=== PATIENT | male | born 1955 | race Caucasian/White ===

== ENCOUNTER → 2018-02-23 09:05 | Outpatient (CLI) | payer BC, SELFPAY ==
[2018-02-23 12:46] LABS: Absolute Lymphocyte Count 2.38 X10^3/ul (0.83-4.51); Basophil# 0.02 X10^3/uL; Basophil% 0.3 % (0-1); Eosinophil# 0.21 X10^3/uL; Eosinophils% 3.3 % (0-5); Hematocrit 46.8 % (40-54); Hemoglobin 15.8 g/dl (13.0-16.5); Lymphocyte # 2.38 X10^3/ul (4.0); Lymphocyte % 37.6 % (19-41); Mean Corp Hgb Conc 33.8 g/gl (32-36); Mean Corpuscular Hgb 31.7 pg (27.0-32.0); Mean Corpuscular Volume 93.8 fL (80-94); Mean Platelet Vol. 10.9 fl (6.2-12.0); Monocyte# 0.76 X10^3/uL; Neutrophil # 2.95 X10^3/uL (2.7-7.7); Neutrophil % 46.6 % (47-70); Platelet Count 185 K/mm3 (150-450); RBC Distribution Width CV 12.9 % (11.6-14.6); RBC Distribution Width SD 43.1 fl (35.1-43.9); Red Blood Count 4.99 M/mm3 (4.6-6.2); White Blood Count 6.3 K/mm3 (4.4-11.0)
[2018-02-23 12:51] LABS: POSITIVE COUNT NO; POSITIVE DIFFERENTIAL NO; POSITIVE MORPHOLOGY NO
[2018-02-23 13:17] LABS: ALB/GLOB Ratio 0.9 RATIO (0.9-2.4); AST(SGOT) 28 U/L (15-37); Alanine Aminotransfer ALT/SGPT 39 U/L (16-61); Albumin, Serum 3.5 g/dL (3.2-5.0); Alkaline Phosphatase 62 U/L (45-117); Anion Gap 7 (5-15); BUN 19 mg/dL (7-18); BUN/Creat Ratio 16.2 RATIO (10-20); Calcium,Total 8.7 mg/dL (8.5-10.1); Chloride 108 mmol/L (98-107); Creatinine, Serum 1.17 mg/dL (0.70-1.30); EST Glomerular Filtration Rate 67 mL/min (>60); Est Glom Filt Rate - Afr Amer 82 mL/min (>60); Globulin 3.9 g/dL (2.2-4.2); Glucose 77 mg/dL (74-106); PSA,Total - Annual Screen 4.26 ng/mL (0.00-4.00); Potassium 4.6 mmol/L (3.5-5.1); Protein, Total 7.4 g/dL (6.4-8.2); Sodium Level 141 mmol/L (136-145); Thyroid Stim Hormone (TSH) 1.05 uIU/mL (0.358-3.74)
[2018-02-24 15:13] LABS: Hep C Antibodies <0.1 s/co ratio (0.0-0.9)
== END ==
PROVIDERS: Family Provider Family Medicine Geriatric Medicine; PCP Family Medicine Geriatric Medicine; Visit Provider Family Medicine Geriatric Medicine
DX: F52.8 Other sexual dysfunction not due to a substance or known physiological condition (principal); R53.83 Other fatigue; Z12.5 Encounter for screening for malignant neoplasm of prostate; Z13.89 Encounter for screening for other disorder
CPT/HCPCS: 36415; 80053; 84153; 84403; 84443; 85025; 86803; G0103

== ENCOUNTER → 2018-03-23 17:08 | Outpatient (CLI) | payer BC, SELFPAY | PROVIDERS: Family Provider Family Medicine Geriatric Medicine; PCP Family Medicine Geriatric Medicine; Visit Provider Family Medicine Geriatric Medicine | DX: M54.5 Low back pain (principal) | CPT/HCPCS: 72114 ==

== ENCOUNTER → 2018-09-04 15:51 | Outpatient (CLI) | payer BC, SELFPAY ==
[2018-06-02 14:42] VITALS: BMI 29.7
[2018-09-04 16:57] LABS: PSA,Total- Diagnostic 5.91 ng/mL (0.0-4.0)
== END ==
PROVIDERS: Family Provider Family Medicine Geriatric Medicine; PCP Family Medicine Geriatric Medicine; Referring Provider Urology; Visit Provider Urology
DX: R97.20 Elevated prostate specific antigen [PSA] (principal)
CPT/HCPCS: 36415; 84153

== ENCOUNTER → 2018-10-19 08:15 | Outpatient (CLI) | payer BC, SELFPAY ==
--- NOTE | 2018-10-19 | IMM_PTH ---
PATIENT: JOSE CASTRO LOC: [facility] U#:[id number] AGE/SX: 69/M ROOM: RE10/19/[address]: Dr. Dmitry Meza MD : 1955 BED: DIS: SPEC #: [id number] RECD: 10/22/18 09:13 STATUS: KLAUDIA GERA #: [id number] RUBY: 10/19/18 00:[address]: Dmitry Meza DEPT: IMMUNOHISTOCHEMISTRY RECD BY: Kathleen Warner ENTERED: 10/22/18 09:14 SP TYPE: IMMUNO OTHR DR: Dr. Dudley Stevens MD Tissues: A - PROSTATE RIGHT E - PROSTATE LEFT Procedures: 34BE12 (add) P40 (add) 34BE12 (initial) PHYSICIAN & INSTITUTION [place] [id number] SPECIMEN INFORMATION: Tissue Source: A - Right prostate, apex, core biopsy, E - Left prostate, mid, core biopsy Clinical Info: Elevated PSA Specimen Number: [id number] A & E CPT code: 57924, 58594 x3 METHODOLOGY: Deparaffinized sections of prefer/formalin-fixed tissue or PAP/DQ stained slides are incubated with monoclonal/polyclonal antibodies/oligonucleotide probes. Localization is made via biotin free immunoperoxidase method. Appropriate controls are performed and reacted as expected. Results on target cell population are indicated in the following table: RESULTS: ANTIBODY / CLONE RESULT Block A P40 (BC28) negative 34BE12 (34BE12) negative Block E P40 (BC28) negative 34BE12 (34BE12) negative These tests were developed and their performance characteristics determined by [facility]. They may not have been cleared or approved by the U.S. Food and Drug Administration. The FDA has determined that such clearance or approval is not necessary. INTERPRETATION: A. Right prostate, apex, core biopsy: Adenocarcinoma. E. Left prostate, mid, core biopsy: Adenocarcinoma. SJ:nelsy 10/22/18
--- NOTE | 2018-10-19 11:30 | PROSBIL_PTH ---
PATIENT: JOSE CASTRO LOC: [facility] U#:[id number] AGE/SX: 69/M ROOM: RE10/19/[address]: Dr. Dmitry Meza MD : 1955 BED: DIS: SPEC #: [id number] RECD: 10/19/18 17:36 STATUS: KLAUDIA GERA #: [id number] RUBY: 10/19/18 11:[address]: Dmitry Meza DEPT: SURGICAL PATHOLOGY RECD BY: Andrea Tarango ENTERED: 10/20/18 09:02 SP TYPE: PROST BX LETY DR: Dr. Dudley Stevens MD Tissues: A - PROSTATE RIGHT B - PROSTATE RIGHT C - PROSTATE RIGHT D - PROSTATE LEFT E - PROSTATE LEFT F - PROSTATE LEFT Procedures: PROSTATE BX HEADER OPERATION: Prostate biopsy PRE-OP DIAGNOSIS: Elevated PSA TISSUE SUBMITTED: A - Right apex, B - Right mid, C - Right base, D - Left apex, E - Left mid, F - Left base MICROSCOPIC DIAGNOSIS A. Right prostate, apex, core biopsy: Prostatic adenocarcinoma: Tara grade: 3+3=6 Number of cores involved: 2 out of 2 Proportion of tissue involved: ~20% Perineural invasion: Not identified. Greatest tumor length: 0.3 cm Focal high-grade prostatic intraepithelial neoplasia (HGPIN). See comment. B. Right prostate, mid, core biopsy: Prostatic tissue, negative for malignancy. C. Right prostate, base, core biopsy: Focal high-grade prostatic intraepithelial neoplasia (HGPIN). D. Left prostate, apex, core biopsy: Focal high-grade prostatic intraepithelial neoplasia (HGPIN). E. Left prostate, mid, core biopsy: Prostatic adenocarcinoma: Robertson grade: 3+3=6 Number of cores involved: 2 out of 2 Proportion of tissue involved: <5% Perineural invasion: Not identified. Greatest tumor length: 0.1 cm See comment. F. Left prostate, base, core biopsy: Prostatic tissue, negative for malignancy. SJ:nelsy 10/21/18 COMMENT A & E. Immunohistochemistry ([id number]) supports the above diagnosis. Case has been reviewed in consultation with Dr. Baker who concurs with the above diagnosis. IDC:AM MICROSCOPIC DESCRIPTION Slides are reviewed. GROSS DESCRIPTION A - Received is one container designated prostate, right apex. The specimen consists of two elongated fragments of light flores-white soft tissue measuring 0.9 to 1 cm in length and 0.1 cm in diameter. The specimen is totally submitted in one cassette. B - Received is one container designated prostate, right mid. The specimen consists of two elongated fragments of light flores-white soft tissue each measuring 1.2 cm in length and 0.1 cm in diameter. The specimen is totally submitted in one cassette. C - Received is one container designated prostate, right base. The specimen consists of two elongated fragments of light flores-white soft tissue measuring 0.5 and 1 cm in length and 0.1 cm in diameter. The specimen is totally submitted in one cassette. D - Received is one container designated prostate, left apex. The specimen consists of two elongated fragments of light flores-white soft tissue measuring 0.5 and 1 cm in length and 0.1 cm in diameter. The specimen is totally submitted in one cassette. E - Received is one container designated prostate, left mid. The specimen consists of two elongated fragments of light flores-white soft tissue each measuring 1.2 cm in length and 0.1 cm in diameter. The specimen is totally submitted in one cassette. F - Received is one container designated prostate, left base. The specimen consists of two elongated fragments of light flores-white soft tissue each measuring 1.5 cm in length and 0.1 cm in diameter. The specimen is totally submitted in one cassette. / SJ:rg 10/20/18 TC:0 [facility]: [id number] x6 ADDENDUM ADDENDUM ADDENDUM ADDENDUM ADDENDUM ADDENDUM ADDENDUM ADDENDUM 11/13/2018 09:13 ADDENDUM 11/13/2018 09:13 ADDENDUM 11/13/2018 09:13 ADDENDUM 11/13/2018 09:13 ADDENDUM 11/13/2018 09:13 An order for Oncotype testing was received from Dr. Meza. This necessitated case review, block and slide selection by pathologist at [facility]. Genomic Prostate Score = 30 Results of the complete Oncotype testing (ViS report) are viewable in EMR under: Reports - Pathology - Lab Pathology Report, Scanned.
== END ==
PROVIDERS: Family Provider Family Medicine Geriatric Medicine; PCP Family Medicine Geriatric Medicine; Referring Provider Urology; Visit Provider Urology
DX: R97.20 Elevated prostate specific antigen [PSA] (principal)
CPT/HCPCS: 88305; 88341; 88342; G0416

== ENCOUNTER → 2018-11-30 | Outpatient (CLI) | payer BC, SELFPAY ==
[2018-06-02 14:42] VITALS: BMI 29.7
--- NOTE | 2018-11-30 17:09 | RAD_ITS ---
STUDY: X-RAY - LEFT KNEE REASON FOR EXAM: Male, 62 years old. Pain TECHNIQUE: 4 view(s) of the knee. COMPARISON: None. FINDINGS: Normal visualized distal femur. Normal visualized proximal tibia and fibula. Mild spurring of the tibial tuberosity. Normal proximal tibiofibular articulation. Normal medial femorotibial compartment. Normal lateral femorotibial compartment. Mild spurring at the patellofemoral articulation. There is a suprapatellar effusion suspected. The soft tissue structures are unremarkable. RAD/Knee 4 or More Views IMPRESSION: Mild degenerative changes with effusion of the knee. Electronically Signed: Tk Govea DO at 19:14 EDT Tel [phone], Service support ,
== END | disposition home or self-care (01) ==
LOC: RAD 17:05
PROVIDERS: Family Provider Family Medicine Geriatric Medicine; PCP Family Medicine Geriatric Medicine; Referring Provider Family Medicine Geriatric Medicine; Visit Provider Family Medicine Geriatric Medicine
DX: M25.562 Pain in left knee (principal)
CPT/HCPCS: 73564

== ENCOUNTER → 2019-03-01 | Outpatient (CLI) | payer BC, SELFPAY ==
[2019-03-01 11:52] LABS: Absolute Lymphocyte Count 2.06 X10^3/uL (0.83-4.51); Absolute Neutrophil Count 2.8 X10^3/uL (2.0-7.7); Basophil# 0.02 X10^3/uL; Basophil% 0.4 % (0-1); Eosinophil# 0.21 X10^3/uL; Eosinophils% 3.7 % (0-5); Hemoglobin 15.9 g/dL (13.0-16.5); Lymphocyte # 2.06 X10^3/ul (4.0); Lymphocyte % 36.6 % (19-41); Mean Corp Hgb Conc 33.8 g/dL (32-36); Mean Corpuscular Hgb 31.7 pg (27.0-32.0); Mean Corpuscular Volume 93.6 fL (80-94); Mean Platelet Vol. 10.3 fl (6.2-12.0); Monocyte# 0.56 X10^3/uL; Monocyte% 9.9 % (0-10); NRBC Flagged by Analyzer 0 % (0-5); Neutrophil # 2.76 X10^3/uL (2.7-7.7); Platelet Count 190 K/mm3 (150-450); RBC Distribution Width CV 12.3 % (11.6-14.6); RBC Distribution Width SD 42.1 fl (35.1-43.9); Red Blood Count 5.02 M/mm3 (4.6-6.2); White Blood Count 5.6 K/mm3 (4.4-11.0)
[2019-03-01 12:27] LABS: ALB/GLOB Ratio 1.1 RATIO (0.9-2.4); AST(SGOT) 22 U/L (15-37); Alanine Aminotransfer ALT/SGPT 34 U/L (16-61); Albumin, Serum 3.5 g/dL (3.2-5.0); Alkaline Phosphatase 60 U/L (45-117); Anion Gap 4 (5-15); BUN 19 mg/dL (7-18); BUN/Creat Ratio 16.5 RATIO (10-20); Calcium,Total 8.7 mg/dL (8.5-10.1); Chloride 108 mmol/L (98-107); Creatinine, Serum 1.15 mg/dL (0.70-1.30); EST Glomerular Filtration Rate 68 mL/min (>60); Est Glom Filt Rate - Afr Amer 83 mL/min (>60); Globulin 3.3 g/dL (2.2-4.2); Glucose 92 mg/dL (74-106); Potassium 4.2 mmol/L (3.5-5.1); Protein, Total 6.8 g/dL (6.4-8.2); Sodium Level 140 mmol/L (136-145)
== END | disposition home or self-care (01) ==
LOC: POLAB3 08:43
PROVIDERS: Family Provider Family Medicine Geriatric Medicine; PCP Family Medicine Geriatric Medicine; Visit Provider Family Medicine Geriatric Medicine
DX: F52.8 Other sexual dysfunction not due to a substance or known physiological condition (principal); I10 Essential (primary) hypertension; Z12.5 Encounter for screening for malignant neoplasm of prostate
CPT/HCPCS: 36415; 80053; 84403; 84443; 85025

== ENCOUNTER → 2019-05-20 07:58 | Outpatient (CLI) | payer BC, SELFPAY ==
[2019-05-17 15:55] VITALS: BMI 30.4
[2019-05-20 09:28] LABS: AST(SGOT) 24 U/L (15-37); Alanine Aminotransfer ALT/SGPT 40 U/L (16-61); Albumin, Serum 3.7 g/dL (3.2-5.0); Alkaline Phosphatase 64 U/L (45-117); Bilirubin, Direct 0.18 mg/dL (0.00-0.30); Cholesterol 170 mg/dL (200); Globulin 3.4 g/dL (2.2-4.2); High Density Lipoprotein 53 mg/dL; PSA,Total- Diagnostic 3.83 ng/mL (0.0-4.0); Protein, Total 7.1 g/dL (6.4-8.2); Triglycerides 79 mg/dL; Very Low Density Lipoprotein 16 mg/dL (5-40)
== END ==
PROVIDERS: Internal Medicine Cardiovascular Disease; Family Provider Family Medicine Geriatric Medicine; PCP Family Medicine Geriatric Medicine; Referring Provider Urology; Visit Provider Urology
DX: E78.00 Pure hypercholesterolemia, unspecified (principal); C61 Malignant neoplasm of prostate
CPT/HCPCS: 36415; 80061; 80076; 84153

== ENCOUNTER → 2019-06-07 07:47 | Outpatient (CLI) | payer BC, SELFPAY ==
[2019-05-17 15:55] VITALS: BMI 30.4
--- NOTE | 2019-06-07 07:48 | ECHOD_ITS ---
Reason For Study: RV FAILURE Procedure This was a 2D Doppler, Color Flow transthoracic echocardiogram. Exam performed in department. Left Ventricle Normal size and thickness. The estimated ejection fraction is 65 %. Stage 1 diastolic dysfunction. No regional wall motion abnormalities noted. Right Ventricle Moderately dilated right ventricle. Normal systolic function. Atria Normal left atrium. Normal right atrium. Normal atrial septum. Mitral Valve The mitral valve is structurally normal. No prolapse or stenosis seen. Tricuspid Valve Normal tricuspid valve. Trivial tricuspid valve insufficiency. Right ventricular systolic pressure estimated to be 31 mmHg. Aortic Valve Trisinus/trileaflet aortic valve. Mild diffuse aortic valve thickening. Mild (1+) aortic valve insufficiency. Pulmonic Valve Normal pulmonic valve. Great Vessels Normal aortic root. Normal arch. Normal inferior vena cava. Inferior vena cava collapse with sniff. Pericardium/Pleural No pericardial effusion. MMode/2D Measurements & Calculations LVIDd: 5.1 cm IVSd: 0.98 cm Ao root diam: 4.1 cm LVIDs: 3.0 cm LVPWd: 0.99 cm RVDd: 4.6 cm FS: 40.8 % LAV(MOD-bp): 68.5 ml LA A4 area: 23.0 cm2 LA dimension(2D): 4.4 cm LAV(MOD-bp) Indexed: 29.1 ml/m2 LAV(MOD-sp2): 56.8 ml LAV(MOD-sp4): 71.7 ml RA A4 area: 16.7 cm2 Time Measurements MV dec time: 0.22 sec Doppler Measurements & Calculations MV E max josafat: 66.7 cm/sec Lat Peak E' Josafat: 6.3 cm/sec Med Peak E' Josafat: 5.3 cm/sec MV A max josafat: 66.1 cm/sec E/E' lat: 10.6 E/E' med: 12.6 MV E/A: 1.0 Ao V2 max: 121.0 cm/sec AI max josafat: 417.6 cm/sec LV V1 max: 117.6 cm/sec Ao max P.9 mmHg AI max P.8 mmHg LV V1 max P.5 mmHg Ao V2 mean: 97.2 cm/sec AI dec slope: 218.9 cm/sec2 LV V1 mean P.2 mmHg Ao mean P.0 mmHg AI P1/2t: 558.7 msec LV V1 mean: 84.1 cm/sec Ao V2 VTI: 28.6 cm LV V1 VTI: 27.4 cm PA V2 max: 86.5 cm/sec PI end-d josafat: 100.8 cm/sec TR max josafat: 250.1 cm/sec TR max P.0 mmHg Interpretation Summary The estimated ejection fraction is 65 %. Stage 1 diastolic dysfunction. Moderately dilated right ventricle. Trivial tricuspid valve insufficiency. Right ventricular systolic pressure estimated to be 31 mmHg. Mild (1+) aortic valve insufficiency. Compared to echo report dated 10/11/2016, LV function has remained the same, but RVSP has increased from 25 to 31 mm Hg, and AI has gone from trivial to mild. Ordering Physician: Luciano Greer Referring Physician: YANDEL PORTER CHI Performed By: Eros ALICEA RVT, Carrie and Student
== END ==
PROVIDERS: Family Provider Family Medicine Geriatric Medicine; PCP Family Medicine Geriatric Medicine; Referring Provider Internal Medicine Cardiovascular Disease; Visit Provider Internal Medicine Cardiovascular Disease
DX: I50.810 Right heart failure, unspecified (principal); G47.33 Obstructive sleep apnea (adult) (pediatric); I47.2 Ventricular tachycardia; R07.89 Other chest pain; R60.0 Localized edema; Z99.89 Dependence on other enabling machines and devices
CPT/HCPCS: 93306

== ENCOUNTER → 2019-12-07 15:55 | Outpatient (CLI) | payer BC, SELFPAY ==
[2019-05-17 15:55] VITALS: BMI 30.4
[2019-11-30 08:58] VITALS: BMI 30.4
[2019-12-07 16:59] LABS: PSA,Total- Diagnostic 4.51 ng/mL (0.0-4.0)
== END ==
PROVIDERS: PCP Family Medicine Geriatric Medicine; Referring Provider Urology; Visit Provider Urology
DX: C61 Malignant neoplasm of prostate (principal); R97.20 Elevated prostate specific antigen [PSA]
CPT/HCPCS: 36415; 84153

== ENCOUNTER → 2020-01-17 | Outpatient (CLI) | payer BC, SELFPAY ==
[2019-11-30 08:58] VITALS: BMI 30.4
--- NOTE | 2020-01-17 | IMM_PTH ---
PATIENT: JOSE CASTRO LOC: [facility] U#:[id number] AGE/SX: 64/M ROOM: RE01/17/[address]: Dr. Dmitry Meza MD : 1955 BED: DIS: 01/17/2020 SPEC #: [id number] RECD: 01/19/20 11:34 STATUS: KLAUDIA REAnnamarie #: [id number] RUBY: 01/17/20 00:[address]: Dmitry Meza DEPT: IMMUNOHISTOCHEMISTRY RECD BY: Kathleen Warner ENTERED: 01/19/20 11:35 SP TYPE: IMMUNO OTHR DR: Dr. Dudley Stevens MD Tissues: A - PROSTATE RIGHT D - PROSTATE LEFT Procedures: 34BE12 (add) P40 (add) 34BE12 (initial) PHYSICIAN & INSTITUTION [place] [id number] SPECIMEN INFORMATION: Tissue Source: A - Right prostate, apex, core biopsy, B - Left prostate, apex, core biopsy Clinical Info: Elevated PSA Specimen Number: [id number] A & D CPT code: 44424, 98467 x3 METHODOLOGY: Deparaffinized sections of prefer/formalin-fixed tissue or PAP/DQ stained slides are incubated with monoclonal/polyclonal antibodies/oligonucleotide probes. Localization is made via biotin free immunoperoxidase method. Appropriate controls are performed and reacted as expected. Results on target cell population are indicated in the following table: RESULTS: ANTIBODY / CLONE RESULT Block A P40 (BC28) negative 34BE12 (34BE12) negative Block D P40 (BC28) negative 34BE12 (34BE12) negative These tests were developed and their performance characteristics determined by [facility]. They may not have been cleared or approved by the U.S. Food and Drug Administration. The FDA has determined that such clearance or approval is not necessary. The above immunohistochemical/dualISH markers are ordered and reviewed by the Pathologist. INTERPRETATION: A. Right prostate, apex, core biopsy: Adenocarcinoma. D. Left prostate, apex, core biopsy: A minute focus of adenocarcinoma. SJ:nelsy 01/20/20
--- NOTE | 2020-01-17 08:00 | PROSBIL_PTH ---
PATIENT: JOSE CASTRO LOC: [facility] U#:[id number] AGE/SX: 64/M ROOM: RE01/17/[address]: Dr. Dmitry Meza MD : 1955 BED: DIS: 01/17/2020 SPEC #: [id number] RECD: 01/17/20 15:57 STATUS: KLAUDIA REAnnamarie #: [id number] RUBY: 01/17/20 08:[address]: Dmitry Meza DEPT: SURGICAL PATHOLOGY RECD BY: Shaquille Moreno ENTERED: 01/18/20 09:02 SP TYPE: PROST BX LETY DR: Dr. Dudley Stevens MD Tissues: A - PROSTATE RIGHT B - PROSTATE RIGHT C - PROSTATE RIGHT D - PROSTATE LEFT E - PROSTATE LEFT F - PROSTATE LEFT Procedures: PROSTATE BX HEADER OPERATION: Prostate biopsy PRE-OP DIAGNOSIS: Elevated PSA TISSUE SUBMITTED: A - Right apex, B - Right mid, C - Right base, D - Left apex, E - Left mid, F - Left base MICROSCOPIC DIAGNOSIS A. Right prostate, apex, core biopsy: Prostatic adenocarcinoma. Beaumont grade: 3+3=6 Number of cores involved: 2/2 Proportion of tissue involved: ~10% Perineural invasion: Not identified. Greatest tumor length: 0.2 cm See comment. B. Right prostate, mid, core biopsy: Prostatic tissue, negative for malignancy. C. Right prostate, base, core biopsy: Prostatic tissue, negative for malignancy. D. Left prostate, apex, core biopsy: A minute focus of prostatic adenocarcinoma. Beaumont grade: 3+3=6 Number of cores involved: 1/2 Proportion of tissue involved: <5% Perineural invasion: Not identified. Greatest tumor length: <0.1 cm See comment. E. Left prostate, mid, core biopsy: Focal high-grade prostatic intraepithelial neoplasia (HGPIN). F. Left prostate, base, core biopsy: Prostatic tissue, negative for malignancy. Focal mild chronic inflammation. SJ:nelsy 01/19/20 COMMENT A & D. Immunohistochemistry ([id number]) supports the above diagnosis. Please make reference to previous specimen ([id number]) right prostate, apex and left prostate, mid, core biopsies with diagnosis of prostatic adenocarcinoma and right prostate, base and left prostate, apex with diagnosis of focal high-grade prostatic intraepithelial neoplasia. Case has been reviewed in consultation with Dr. Baker who concurs with the above diagnosis. IDC:AM MICROSCOPIC DESCRIPTION Slides are reviewed. GROSS DESCRIPTION A - Received is one container designated prostate, right apex. The specimen consists of two elongated fragments of light flores-white soft tissue each measuring 1.5 cm in length and 0.1 cm in diameter. The specimen is totally submitted in one cassette. B - Received is one container designated prostate, right mid. The specimen consists of two elongated fragments of light flores-white soft tissue each measuring 1.5 cm in length and 0.1 cm in diameter. The specimen is totally submitted in one cassette. C - Received is one container designated prostate, right base. The specimen consists of two elongated fragments of light flores-white soft tissue measuring 0.6 and 2 cm in length and 0.1 cm in diameter. The specimen is totally submitted in one cassette. D - Received is one container designated prostate, left apex. The specimen consists of two elongated fragments of light flores-white soft tissue each measuring 1.5 cm in length and 0.1 cm in diameter. The specimen is totally submitted in one cassette. E - Received is one container designated prostate, left mid. The specimen consists of two elongated fragments of light flores-white soft tissue each measuring 1.2 cm in length and 0.1 cm in diameter. The specimen is totally submitted in one cassette. F - Received is one container designated prostate, left base. The specimen consists of two elongated fragments of light flores-white soft tissue each measuring 1.5 cm in length and 0.1 cm in diameter. The specimen is totally submitted in one cassette. / SJ:rg 01/18/20 TC:0 CPT: 10122 x6
== END | disposition home or self-care (01) ==
LOC: LABSPEC 16:06
PROVIDERS: PCP Family Medicine Geriatric Medicine; Referring Provider Urology; Visit Provider Urology
DX: C61 Malignant neoplasm of prostate (principal); R97.20 Elevated prostate specific antigen [PSA]
CPT/HCPCS: 88305; 88341; 88342; G0416

== ENCOUNTER → 2020-03-06 11:49 | Outpatient (CLI) | payer BC, SELFPAY ==
[2019-11-30 08:58] VITALS: BMI 30.4
[2020-03-06 12:16] LABS: Absolute Lymphocyte Count 2.24 X10^3/uL (0.83-4.51); Basophil# 0.03 X10^3/uL; Basophil% 0.5 % (0-1); Eosinophil# 0.23 X10^3/uL; Eosinophils% 3.8 % (0-5); Hematocrit 45.7 % (40-54); Hemoglobin 15.1 g/dL (13.0-16.5); Lymphocyte # 2.24 X10^3/ul (4.0); Lymphocyte % 36.5 % (19-41); Mean Corpuscular Hgb 31.3 pg (27.0-32.0); Mean Corpuscular Volume 94.8 fL (80-94); Mean Platelet Vol. 10.6 fl (6.2-12.0); Monocyte# 0.64 X10^3/uL; Monocyte% 10.4 % (0-10); NRBC Flagged by Analyzer 0 % (0-5); Neutrophil # 2.97 X10^3/uL (2.7-7.7); Neutrophil % 48.5 % (47-70); Platelet Count 197 K/mm3 (150-450); RBC Distribution Width CV 12.5 % (11.6-14.6); RBC Distribution Width SD 43.3 fl (35.1-43.9); Red Blood Count 4.82 M/mm3 (4.6-6.2); White Blood Count 6.1 K/mm3 (4.4-11.0)
[2020-03-06 12:48] LABS: ALB/GLOB Ratio 1.1 RATIO (0.9-2.4); AST(SGOT) 24 U/L (15-37); Alanine Aminotransfer ALT/SGPT 36 U/L (16-61); Albumin, Serum 3.5 g/dL (3.2-5.0); Alkaline Phosphatase 60 U/L (45-117); Anion Gap 3 (5-15); BUN 15 mg/dL (7-18); BUN/Creat Ratio 14.9 RATIO (10-20); Calcium,Total 8.3 mg/dL (8.5-10.1); Chloride 107 mmol/L (98-107); Creatinine, Serum 1.01 mg/dL (0.70-1.30); EST Glomerular Filtration Rate 79 mL/min (>60); Est Glom Filt Rate - Afr Amer 96 mL/min (>60); Globulin 3.3 g/dL (2.2-4.2); Glucose 90 mg/dL (74-106); Protein, Total 6.8 g/dL (6.4-8.2); Sodium Level 141 mmol/L (136-145); Thyroid Stim Hormone (TSH) 0.88 uIU/mL (0.358-3.74)
== END ==
PROVIDERS: PCP Family Medicine Geriatric Medicine; Visit Provider Family Medicine Geriatric Medicine
DX: I10 Essential (primary) hypertension (principal); F52.8 Other sexual dysfunction not due to a substance or known physiological condition; Z12.5 Encounter for screening for malignant neoplasm of prostate
CPT/HCPCS: 36415; 80053; 84403; 84443; 85025

== ENCOUNTER → 2020-03-27 09:39 | Outpatient (CLI) | payer BC, SELFPAY ==
[2019-11-30 08:58] VITALS: BMI 30.4
--- NOTE | 2020-03-27 09:50 | RAD_ITS ---
STUDY: X-RAY - ESOPHAGUS (BARIUM SWALLOW) WITH FLUOROSCOPY REASON FOR EXAM: Male, 64 years old. Pt states dysphagia x 10 years, stomach extended, acid reflux, hx prostate cancer TECHNIQUE: 17 view(s) of the esophagus were obtained following swallowing of barium. FLUOROSCOPY TIME (if supplied): (1:05) minutes/seconds COMPARISON: None. FINDINGS: There is no demonstrated esophageal foreign body. There is dilatation of the entire esophagus. Decreased peristaltic activity. Normal gastroesophageal junction, without a demonstrated hiatal hernia. The patient ingested a 12 mm tablet of barium. The tablet passed freely into the stomach. There is atherosclerotic tortuosity of the aortic arch and descending thoracic aorta. Normal visualized pulmonary parenchyma. There are diffuse degenerative changes of the visualized thoracic spine. RAD/Esophagus Dual Contrast IMPRESSION: Dilatation of the entire esophagus with decreased peristaltic activity. Electronically Signed: Pedro Yates, at 15:15 EDT , Service support ,
== END ==
PROVIDERS: PCP Family Medicine Geriatric Medicine; Referring Provider Family Medicine Geriatric Medicine; Visit Provider Family Medicine Geriatric Medicine
DX: R13.10 Dysphagia, unspecified (principal)
CPT/HCPCS: 74221

== ENCOUNTER → 2020-07-17 13:15 | Outpatient (CLI) | payer BC, SELFPAY ==
[2020-06-01 16:02] VITALS: BMI 30.2
[2020-07-17 14:12] LABS: PSA,Total- Diagnostic 4.79 ng/mL (0.0-4.0)
== END ==
PROVIDERS: PCP Family Medicine Geriatric Medicine; Referring Provider Urology; Visit Provider Urology
DX: R97.20 Elevated prostate specific antigen [PSA] (principal)
CPT/HCPCS: 36415; 84153

== ENCOUNTER → 2021-01-29 16:04 | Outpatient (CLI) | payer BC, SELFPAY ==
[2020-06-01 16:02] VITALS: BMI 30.2
== END ==
PROVIDERS: PCP Family Medicine Geriatric Medicine; Referring Provider Urology; Visit Provider Urology
DX: C61 Malignant neoplasm of prostate (principal)
CPT/HCPCS: 36415; 84153

== ENCOUNTER → 2021-03-02 13:29 | Outpatient (CLI) | payer BC, SELFPAY ==
[2021-02-20 16:10] VITALS: BMI 29.6
--- NOTE | 2021-03-02 13:31 | VDLE_ITS ---
Reason For Study: EDEMA RIGHT LEFT GSV is normal. GSV is normal. CFV is compressible, spontaneous, phasic, CFV is compressible, spontaneous, phasic, competent and demonstrates normal competent, and demonstrates normal augmentation. augmentation. FV is compressible, spontaneous, phasic, FV is compressible, spontaneous, phasic, competent and demonstrates normal competent and demonstrates normal augmentation. augmentation. POP V is compressible, spontaneous, phasic, POP V is compressible, spontaneous, phasic, competent and demonstrates normal competent and demonstrates normal augmentation. augmentation. T/P Trunk is compressible. T/P Trunk is compressible. PTV is compressible. PTV is compressible. RT PerV is compressible. LT PerV is compressible. Procedure This is a venous duplex using B-mode, color flow and spectral Doppler. Exam performed in department. A preliminary report was called and/or faxed to Dr. Green's office. VL/Venous Duplex US - Antonio Extrem Interpretation Summary Bilateral lower extremities no evidence of DVT noted. Ordering Physician: Go Green Referring Physician: Duldey Stevens Chi Performed By: Marika Browne, DEANNE, RVT
== END ==
PROVIDERS: PCP Family Medicine Geriatric Medicine; Referring Provider Internal Medicine Cardiovascular Disease; Visit Provider Internal Medicine Cardiovascular Disease
DX: R60.0 Localized edema (principal); M79.89 Other specified soft tissue disorders
CPT/HCPCS: 93970

== ENCOUNTER → 2021-03-12 08:57 | Outpatient (CLI) | payer BC, SELFPAY ==
[2021-02-20 16:10] VITALS: BMI 29.6
[2021-03-12 12:39] LABS: Absolute Lymphocyte Count 2.11 X10^3/uL (0.83-4.51); Absolute Neutrophil Count 3.3 X10^3/uL (2.0-7.7); Basophil# 0.03 X10^3/uL; Basophil% 0.5 % (0-1); Eosinophil# 0.12 X10^3/uL; Hematocrit 46.5 % (40-54); Hemoglobin 15.4 g/dL (13.0-16.5); Lymphocyte # 2.11 X10^3/ul (0.83-4.51); Lymphocyte % 34.6 % (19-41); Mean Corp Hgb Conc 33.1 g/dL (32-36); Mean Corpuscular Hgb 30.5 pg (27.0-32.0); Mean Corpuscular Volume 92.1 fL (80-94); Mean Platelet Vol. 10.3 fl (6.2-12.0); Monocyte# 0.57 X10^3/uL; Monocyte% 9.3 % (0-10); NRBC Flagged by Analyzer 0 % (0-5); Neutrophil # 3.25 X10^3/uL (2.7-7.7); Neutrophil % 53.3 % (47-70); Platelet Count 222 K/mm3 (150-450); RBC Distribution Width CV 12.3 % (11.6-14.6); RBC Distribution Width SD 41.5 fl (35.1-43.9); Red Blood Count 5.05 M/mm3 (4.6-6.2); White Blood Count 6.1 K/mm3 (4.4-11.0)
[2021-03-12 13:09] LABS: AST(SGOT) 25 U/L (15-37); Alanine Aminotransfer ALT/SGPT 37 U/L (16-61); Albumin, Serum 3.6 g/dL (3.2-5.0); Alkaline Phosphatase 64 U/L (45-117); Anion Gap 5 (5-15); BUN 19 mg/dL (7-18); BUN/Creat Ratio 18.3 RATIO (10-20); Calcium,Total 8.6 mg/dL (8.5-10.1); Chloride 107 mmol/L (98-107); Creatinine, Serum 1.04 mg/dL (0.70-1.30); EST Glomerular Filtration Rate 76 mL/min (>60); Est Glom Filt Rate - Afr Amer 92 mL/min (>60); Globulin 3.5 g/dL (2.2-4.2); Glucose 83 mg/dL (74-106); Potassium 3.7 mmol/L (3.5-5.1); Protein, Total 7.1 g/dL (6.4-8.2); Sodium Level 140 mmol/L (136-145)
== END ==
PROVIDERS: PCP Family Medicine Geriatric Medicine; Visit Provider Family Medicine Geriatric Medicine
DX: I10 Essential (primary) hypertension (principal); F52.8 Other sexual dysfunction not due to a substance or known physiological condition; Z12.5 Encounter for screening for malignant neoplasm of prostate
CPT/HCPCS: 36415; 80053; 84403; 84443; 85025

== ENCOUNTER → 2021-06-15 09:23 | Outpatient (CLI) | payer BC, SELFPAY ==
--- NOTE | 2021-06-15 09:25 | RAD_ITS ---
STUDY: X-RAY - RIGHT KNEE REASON FOR EXAM: Male, 65 years old. Pain and stiffness TECHNIQUE: 4 view(s) of the knee. COMPARISON: None. FINDINGS: Normal visualized distal femur. Normal visualized proximal tibia and fibula. Normal proximal tibiofibular articulation. There is mild degenerative arthrosis of the medial femorotibial compartment. There is mild degenerative arthrosis of the lateral femorotibial compartment. Normal patellofemoral articulation. The soft tissue structures are unremarkable. RAD/Knee 4 or More Views IMPRESSION: Mild arthrosis without acute fracture or suspicious osseous lesion Electronically Signed: Grayson Delgado MD at 10:28 EST , Service support ,
== END ==
PROVIDERS: PCP Family Medicine Geriatric Medicine; Referring Provider Family Medicine Geriatric Medicine; Visit Provider Family Medicine Geriatric Medicine
DX: M25.561 Pain in right knee (principal)
CPT/HCPCS: 73564

== ENCOUNTER → 2021-07-26 09:10 | Outpatient (CLI) | payer BC, SELFPAY | PROVIDERS: PCP Family Medicine Geriatric Medicine; Referring Provider Family Medicine Geriatric Medicine; Visit Provider Family Medicine Geriatric Medicine | DX: R68.83 Chills (without fever) (principal) | CPT/HCPCS: 87635; 87804; 87807; C9803; U0005; U0003 ==

== ENCOUNTER 2021-08-31 14:27 | Outpatient (CLI) | payer BC, SELFPAY ==
[2021-08-31 15:10] LABS: PSA,Total- Diagnostic 4.38 ng/mL (0.0-4.0)
== END 2021-08-31 23:59 | disposition short-term general hospital (02) ==
LOC: LAB 14:29
PROVIDERS: PCP Family Medicine Geriatric Medicine; Referring Provider Urology; Visit Provider Urology
DX: C61 Malignant neoplasm of prostate (principal)
CPT/HCPCS: 36415; 84153

== ENCOUNTER → 2022-02-27 | Outpatient (CLI) | payer MEDICARE, SELFPAY ==
[2022-02-27 11:16] LABS: PSA,Total- Diagnostic 5.34 ng/mL (0.0-4.0)
== END | disposition home or self-care (01) ==
LOC: LAB 10:31
PROVIDERS: PCP Family Medicine Geriatric Medicine; Referring Provider Urology; Visit Provider Urology
DX: C61 Malignant neoplasm of prostate (principal)
CPT/HCPCS: 36415; 84153

== ENCOUNTER → 2022-03-25 | Outpatient (CLI) | payer MEDICARE, SELFPAY ==
[2022-03-25 12:40] LABS: Absolute Lymphocyte Count 2.45 X10^3/uL (0.83-4.51); Absolute Neutrophil Count 4.3 X10^3/uL (2.0-7.7); Basophil# 0.06 X10^3/uL; Basophil% 0.7 % (0-1); Eosinophils% 7.1 % (0-5); Hematocrit 45.7 % (40-54); Hemoglobin 15.4 g/dL (13.0-16.5); Lymphocyte # 2.45 X10^3/ul (0.83-4.51); Lymphocyte % 29.2 % (19-41); Mean Corp Hgb Conc 33.7 g/dL (32-36); Mean Corpuscular Volume 94.8 fL (80-94); Mean Platelet Vol. 10.3 fl (6.2-12.0); Monocyte# 0.93 X10^3/uL; Monocyte% 11.1 % (0-10); NRBC Flagged by Analyzer 0 % (0-5); Neutrophil # 4.34 X10^3/uL (2.7-7.7); Neutrophil % 51.7 % (47-70); Platelet Count 169 K/mm3 (150-450); RBC Distribution Width CV 12.8 % (11.6-14.6); RBC Distribution Width SD 44.7 fl (35.1-43.9); Red Blood Count 4.82 M/mm3 (4.6-6.2); White Blood Count 8.4 K/mm3 (4.4-11.0)
[2022-03-25 12:52] LABS: Vitamin D,25 Hydroxy 30.4 ng/mL
[2022-03-25 13:20] LABS: AST(SGOT) 27 U/L (15-37); Alanine Aminotransfer ALT/SGPT 37 U/L (16-61); Albumin, Serum 3.5 g/dL (3.2-5.0); Alkaline Phosphatase 70 U/L (45-117); Anion Gap 6 (5-15); BUN 15 mg/dL (7-18); BUN/Creat Ratio 13.2 RATIO (10-20); Calcium,Total 8.8 mg/dL (8.5-10.1); Chloride 107 mmol/L (98-107); Creatinine, Serum 1.14 mg/dL (0.70-1.30); EST Glomerular Filtration Rate 69 mL/min (>60); Est Glom Filt Rate - Afr Amer 83 mL/min (>60); Globulin 3.4 g/dL (2.2-4.2); Glucose 90 mg/dL (74-106); PSA,Total - Annual Screen 4.29 ng/mL (0.00-4.00); Potassium 3.8 mmol/L (3.5-5.1); Protein, Total 6.9 g/dL (6.4-8.2); Sodium Level 141 mmol/L (136-145); Thyroid Stim Hormone (TSH) 1.22 uIU/mL (0.358-3.74)
== END | disposition home or self-care (01) ==
LOC: POLAB3 09:02
PROVIDERS: PCP Family Medicine Geriatric Medicine; Visit Provider Family Medicine Geriatric Medicine
DX: I10 Essential (primary) hypertension (principal); F52.8 Other sexual dysfunction not due to a substance or known physiological condition; E55.9 Vitamin D deficiency, unspecified; Z12.5 Encounter for screening for malignant neoplasm of prostate
CPT/HCPCS: 36415; 80053; 82306; 84153; 84403; 84443; 85025; G0103

== ENCOUNTER → 2022-09-23 | Outpatient (CLI) | payer MEDICARE, SELFPAY ==
[2022-09-23 12:42] LABS: Absolute Lymphocyte Count 2.49 X10^3/uL (0.83-4.51); Absolute Neutrophil Count 3.6 X10^3/uL (2.0-7.7); Basophil# 0.06 X10^3/uL; Basophil% 0.8 % (0-1); Eosinophil# 0.43 X10^3/uL; Eosinophils% 5.8 % (0-5); Hemoglobin 15.9 g/dL (13.0-16.5); Lymphocyte # 2.49 X10^3/ul (0.83-4.51); Lymphocyte % 33.4 % (19-41); Mean Corp Hgb Conc 33.1 g/dL (32-36); Mean Corpuscular Hgb 31.2 pg (27.0-32.0); Mean Corpuscular Volume 94.3 fL (80-94); Mean Platelet Vol. 10.9 fl (6.2-12.0); Monocyte# 0.85 X10^3/uL; Monocyte% 11.4 % (0-10); NRBC Flagged by Analyzer 0 % (0-5); Neutrophil # 3.62 X10^3/uL (2.7-7.7); Neutrophil % 48.5 % (47-70); Platelet Count 175 K/mm3 (150-450); RBC Distribution Width CV 12.4 % (11.6-14.6); RBC Distribution Width SD 43.3 fl (35.1-43.9); Red Blood Count 5.09 M/mm3 (4.6-6.2); White Blood Count 7.5 K/mm3 (4.4-11.0)
[2022-09-23 12:59] LABS: Vitamin D,25 Hydroxy 24.6 ng/mL
[2022-09-23 13:14] LABS: AST(SGOT) 23 U/L (15-37); Alanine Aminotransfer ALT/SGPT 35 U/L (16-61); Albumin, Serum 3.6 g/dL (3.2-5.0); Alkaline Phosphatase 63 U/L (45-117); Anion Gap 7 (5-15); BUN 18 mg/dL (7-18); BUN/Creat Ratio 16.2 RATIO (10-20); Calcium,Total 8.9 mg/dL (8.5-10.1); Chloride 108 mmol/L (98-107); Creatinine, Serum 1.11 mg/dL (0.70-1.30); EST Glomerular Filtration Rate 71 mL/min (>60); Est Glom Filt Rate - Afr Amer 85 mL/min (>60); Globulin 3.5 g/dL (2.2-4.2); Glucose 90 mg/dL (74-106); Potassium 3.9 mmol/L (3.5-5.1); Protein, Total 7.1 g/dL (6.4-8.2); Sodium Level 144 mmol/L (136-145); Thyroid Stim Hormone (TSH) 1.45 uIU/mL (0.358-3.74)
== END | disposition home or self-care (01) ==
LOC: POLAB3 08:55
PROVIDERS: PCP Family Medicine Geriatric Medicine; Visit Provider Family Medicine Geriatric Medicine
DX: I10 Essential (primary) hypertension (principal); E55.9 Vitamin D deficiency, unspecified; F52.8 Other sexual dysfunction not due to a substance or known physiological condition
CPT/HCPCS: 36415; 80053; 82306; 84403; 84443; 85025

== ENCOUNTER → 2022-11-27 | Outpatient (CLI) | payer MEDICARE, OTHER, SELFPAY ==
[2022-11-27 11:12] LABS: PSA,Total- Diagnostic 3.76 ng/mL (0.0-4.0)
== END | disposition home or self-care (01) ==
PROVIDERS: PCP Family Medicine Geriatric Medicine; Referring Provider Urology; Visit Provider Urology
DX: C61 Malignant neoplasm of prostate (principal)
CPT/HCPCS: 36415; 84153

== ENCOUNTER → 2023-03-27 | Outpatient (CLI) | payer MEDICARE, OTHER, SELFPAY ==
[2023-03-27 12:36] LABS: Absolute Lymphocyte Count 2.59 X10^3/uL (0.83-4.51); Absolute Neutrophil Count 3.4 X10^3/uL (2.0-7.7); Basophil# 0.05 X10^3/uL; Basophil% 0.7 % (0-1); Eosinophil# 0.24 X10^3/uL; Eosinophils% 3.4 % (0-5); Hematocrit 48.6 % (40-54); Hemoglobin 15.9 g/dL (13.0-16.5); Lymphocyte # 2.59 X10^3/ul (0.83-4.51); Lymphocyte % 36.5 % (19-41); Mean Corp Hgb Conc 32.7 g/dL (32-36); Mean Corpuscular Hgb 30.9 pg (27.0-32.0); Mean Corpuscular Volume 94.4 fL (80-94); Mean Platelet Vol. 10.6 fl (6.2-12.0); Monocyte# 0.83 X10^3/uL; Monocyte% 11.7 % (0-10); NRBC Flagged by Analyzer 0 % (0-5); Neutrophil # 3.37 X10^3/uL (2.7-7.7); Neutrophil % 47.4 % (47-70); Platelet Count 185 K/mm3 (150-450); RBC Distribution Width CV 12.3 % (11.6-14.6); RBC Distribution Width SD 42.4 fl (35.1-43.9); Red Blood Count 5.15 M/mm3 (4.6-6.2); White Blood Count 7.1 K/mm3 (4.4-11.0)
[2023-03-27 12:56] LABS: Vitamin D,25 Hydroxy 35.4 ng/mL
[2023-03-27 13:03] LABS: AST(SGOT) 25 U/L (15-37); Alanine Aminotransfer ALT/SGPT 40 U/L (16-61); Albumin, Serum 3.6 g/dL (3.2-5.0); Alkaline Phosphatase 67 U/L (45-117); Anion Gap 5 (5-15); BUN 20 mg/dL (7-18); BUN/Creat Ratio 17.2 RATIO (10-20); Calcium,Total 8.8 mg/dL (8.5-10.1); Chloride 108 mmol/L (98-107); Creatinine, Serum 1.16 mg/dL (0.70-1.30); EST Glomerular Filtration Rate 67 mL/min (>60); Est Glom Filt Rate - Afr Amer 81 mL/min (>60); Globulin 3.6 g/dL (2.2-4.2); Glucose 96 mg/dL (74-106); PSA,Total - Annual Screen 4.25 ng/mL (0.00-4.00); Potassium 4.1 mmol/L (3.5-5.1); Protein, Total 7.2 g/dL (6.4-8.2); Sodium Level 141 mmol/L (136-145); Thyroid Stim Hormone (TSH) 1.31 uIU/mL (0.358-3.74)
== END | disposition home or self-care (01) ==
PROVIDERS: PCP Family Medicine Geriatric Medicine; Visit Provider Family Medicine Geriatric Medicine
DX: I10 Essential (primary) hypertension (principal); E55.9 Vitamin D deficiency, unspecified; Z12.5 Encounter for screening for malignant neoplasm of prostate
CPT/HCPCS: 36415; 80053; 82306; 84153; 84443; 85025; G0103

== ENCOUNTER → 2023-05-29 | Outpatient (CLI) | payer MEDICARE, OTHER, SELFPAY ==
[2023-05-29 11:42] LABS: PSA,Total- Diagnostic 3.82 ng/mL (0.0-4.0)
== END | disposition home or self-care (01) ==
LOC: LAB 09:49
PROVIDERS: PCP Family Medicine Geriatric Medicine; Referring Provider Urology; Visit Provider Urology
DX: C61 Malignant neoplasm of prostate (principal)
CPT/HCPCS: 36415; 84153

== ENCOUNTER → 2023-09-25 | Outpatient (CLI) | payer MEDICARE, OTHER, SELFPAY ==
--- OUTSIDE RECORDS SUMMARY | 2023-09-25 10:24 | XMS RPT_ITS | CCD ---
Author Name Unknown Address [address] [place] [address] Organization [facility] Care Team Providers Care Lawn Sprinkler Servicer Name Role Phone Alethea Lutz Unavailable Unavailable Alethea Lutz Unavailable Unavailable Dudley Stevens Chi Primary Care Provider Jose Almodovar Unavailable DUDLEY STEVENS MD Attending Unavailable DUDLEY STEVENS MD Consulting Unavailable DUDLEY STEVENS MD Primary Care Unavailable DUDLEY STEVENS MD Admitting Unavailable PROVIDER, UNKNOWN Consulting Unavailable PROVIDER, UNKNOWN Consulting Unavailable Allergies Allergy Classification Reported Allergen(s) Allergy Type Date of Onset Reaction(s) Facility (2 sources) Penicillins (Antibiotic) drug allergy 08-22-2014 [employer] Work Phone: Medications Completed/Discontinued Medications Medication Drug Class(es) Dates Sig (Normalized) Sig (Original) aspirin 81 mg oral strip (4 sources) Platelet Aggregation Inhibitor, Nonsteroidal Anti-inflammatory Drug Start: 08-22-2014 take 1 tablet by mouth once daily ASPIRIN 81 MG TABS One tablet by mouth daily ASPIRIN [id number] Luciano Greer MD Problems Active Problems Problem Classification Problem Date Documented Da te Episodic/Chronic Cardiac dysrhythmias (2 sources) Supraventricular tachycardia; Translations: [Supraventricular tachycardia] Onset: 5 08-22-2014 Chronic Osteoarthritis (3 sources) Unilateral primary osteoarthritis, right knee; Translations: [Unilateral primary osteoarthritis, right knee] Onset: 2 Chronic Other gastrointestinal disorders (1 source) Esophageal dysphagia; Translations: [Esophageal dysphagia] Episodic Residual codes; unclassified (2 sources) Obstructive sleep apnea syndrome; Translations: [Obstructive sleep apnea (adult) (pediatric)] Onset: 5 08-22-2014 Chronic Past or Other Problems Problem Classification Problem Date Documented Da te Episodic/Chronic Nonspecific chest pain (4 sources) Chest pain; Translations: [Chest pain, unspecified] Onset: 08-22-2014 10-02-2015 Episodic Residual codes; unclassified (4 sources) Family history of ischemic heart disease; Translations: [Family history of ischemic heart disease and other diseases of the circulatory system] Onset: 08-22-2014 08-22-2014 Episodic Residual codes; unclassified (1 source) Family history of ischemic heart disease and other diseases of the circulatory system; Translations: [Family history of ischemic heart disease and other diseases of the circulatory system] 08-22-2014 Episodic Residual codes; unclassified (1 source) Family history of stroke; Translations: [Family history of stroke] 08-22-2014 Episodic Results Test Name Value Interpretation Reference Range Facil ity Vital Signs Date Time Vital Sign Value Performing Clinician Facmarge singh 04-14-2017 12:49-0400 BMI (Body Mass Index) 29.99 kg/m2 Alethea Bolivar [facility] Work Phone: 04-14-2017 12:49-0400 BP Diastolic 80 mm[Hg] Alethea Lutz [employer] Work Phone: 04-14-2017 12:49-0400 BP Systolic 116 mm[Hg] Imperm[facility] [employer] Work Phone: 04-14-2017 12:49-0400 Height 190.5 cm Alethea Lutz [employer] Work Phone: 04-14-2017 12:49-0400 Pulse (Heart Rate) 68 /min Alethea Lutz [employer] Work Phone: 04-14-2017 12:49-0400 Respiratory Rate 18 /min [employer] Work Phone: 04-14-2017 12:49-0400 Weight 108.86 kg [employer] Work Phone: 09-26-2014 15:46-0500 BSA (Body Surface Area) 2.38 m2 Alethea Lutz [facility] Work Phone: Encounters Encounter Date Encounter Type Care Provider Facility Start: 11-21-2021 End: 02-27-2022 ambulatory DUDLEY MD [facility] Start: 05-23-2020 End: 05-23-2020 Telephone encounter Eleni De Los Santos Work Phone: [facility] Procedures Date Procedure Procedure Detail Performing Clinician Start: 10-03-2016 End: 10-03-2016 Dietary management education, guidance, and counseling Alethea Lutz Start: 10-03-2016 End: 10-07-2016 *Hepatic Function Panel Luciano Greer MD Work Phone: Start: 10-03-2016 End: 10-03-2016 JESSE Greer MD Work Phone: Start: 10-03-2016 End: 10-14-2016 Echocardiography Luciano Greer MD Work Phone: Start: 10-03-2016 End: 10-03-2016 Follow Up Appt 6 months Luciano Greer MD Work Phone: Start: 10-03-2016 End: 10-07-2016 Lipid panel [AGGREGATE] Luciano Greer MD Work Phone: Start: 10-03-2016 End: 10-21-2016 Stress Echocardiogram (treadmill) Luciano Greer MD Work Phone: Start: 10-02-2015 End: 10-02-2015 JESSE Greer MD Work Phone: Start: 10-02-2015 End: 10-02-2015 Follow Up Appt 1 year Jamari Hidalgo Work Phone: Start: 09-26-2014 End: 09-26-2014 JESSE Greer MD Work Phone: Start: 09-26-2014 End: 09-18-2015 Echocardiography Luciano Greer MD Work Phone: Start: 09-26-2014 End: 09-26-2014 Follow Up Appt 1 year Jamari Hidalgo Work Phone: Start: 08-22-2014 End: 08-22-2014 DJN Luciano Greer MD Work Phone: Start: 08-22-2014 End: 08-29-2014 Echocardiography Luciano Greer MD Work Phone: Start: 08-22-2014 End: 08-22-2014 Follow Up Appt 1 month Luciano Greer MD Work Phone: Start: 08-22-2014 End: 09-08-2014 Stress Echocardiogram (treadmill) Luciano Greer MD Work Phone: Plan of Treatment Date Care Activity Detail Author Start: 06-07-2020 End: 05-22-2021 PRE-PROCEDURE & PRE-OPERATIVE COVID PRE-PROCEDURE & PRE-OPERATIVE COVID Microbiology Routine Esophageal dysphagia Expected: 06/07/2020, Expires: 05/22/2021 [facility] Payers Date Payer Category Payer Unknown [employer] PPO [id number] 2016-Present PPO [id number] 1955 Unknown [id number] Unknown [id number] Social History Date Type Detail Facility Start: 05-22-2020 Tobacco smoking status NHIS Unknown if ever smoked [facility] Sex Assigned At Not on file [facility] Assessments Diagnosis Esophageal dysphagia- Primary Dysphagia, pharyngoesophageal phase Summary Purpose Family History No Family History Records FoundNo Family History Records Found Advance Directives No Advanced Directives Records FoundNo Advanced Directives Records Found Additional Source Comments Source Comments (unrecognize d section and content) In the event this informatio n is protected by the Federal Confidentiality of Alcohol and Drug Abuse Patient Records regulations: The Federal rules restrict any use of the information to criminally investigate or prosecute any alcohol or drug abuse patient.[facility] the event this information is protected by the Federal Confidentiality of Alcohol and Drug Abuse Patient Records regulations: The Federal rules restrict any use of the information to criminally investigate or prosecute any alcohol or drug abuse patient.[facility] the event this information is protected by the Federal Confidentiality of Alcohol and Drug Abuse Patient Records regulations: The Federal rules restrict any use of the information to criminally investigate or prosecute any alcohol or drug abuse patient.[facility] Reason for Visit (unrecogniz ed section and content) Telephone Encounter - Kandi Gibson RN - 05/23/2020 9:24 AM EDT Miscellaneous Notes (unrecog nized section and content) I called patient yesterday and explained the manometry, including the prep and Covid testing. Patient agreed to be scheduled. Cristi Castro has been scheduled for manometry Date: 06/09/20 Arrival Time: 0830 Surgery Time: 0900 Location: [facility] No clearance required. Scheduled with surgery center: Yes Patient notified of date, time and location: Yes Form faxed to surgery center: Epic Placed on computer schedule: Yes Written on calendar: Yes Surgery information booklet sent/given: Yes Pre testing details: Covid testing at [facility] 06/07/20 at 1045 Admission Type: outpatient Anesthesia: Local Written instructions and maps mailed to patient. Kandi Gibson documented in this encounter (unrecognized sect ion and content) No Status Records FoundNo Status Records Found INFORMATION SOURCE (unrecogn ized section and content) DATE CREATED AUTHOR AUTHOR'S ORGANIZ ATION 03/01/2022 [facility] FOR RECORDS PERTAINING TO PATIENTS WHO ARE OR HAVE BEEN ENROLLED IN A CHEMICAL DEPENDENCY/SUBSTANCEABUSE PROGRAM, SOME INFORMATION MAY BE OMITTED. This clinical summary was aggregated from multiple sources. Caution should be exercised in using it in the provision of clinical care. This summary normalizes information from multiple sources, and as a consequence, information in this document may materially change the coding, format and clinical context of patient data. In addition, data may be omitted in some cases. CLINICAL DECISIONS SHOULD BE BASED ON THE PRIMARY CLINICAL RECORDS. [facility]. provides no warranty or guarantee of the accuracy or completeness of information in this document.
[2023-09-25 10:59] LABS: Absolute Neutrophil Count 3.8 X10^3/uL (2.0-7.7); Basophil# 0.03 X10^3/uL; Basophil% 0.4 % (0-1); Eosinophil# 0.22 X10^3/uL; Eosinophils% 2.8 % (0-5); Hematocrit 51.2 % (40-54); Hemoglobin 17.1 g/dL (13.0-16.5); Mean Corp Hgb Conc 33.4 g/dL (32-36); Mean Corpuscular Hgb 30.6 pg (27.0-32.0); Mean Corpuscular Volume 91.6 fL (80-94); Mean Platelet Vol. 10.5 fl (6.2-12.0); Monocyte# 0.89 X10^3/uL; Monocyte% 11.5 % (0-10); NRBC Flagged by Analyzer 0 % (0-5); Neutrophil # 3.82 X10^3/uL (2.7-7.7); Neutrophil % 49.2 % (47-70); Platelet Count 199 K/mm3 (150-450); RBC Distribution Width CV 12.3 % (11.6-14.6); RBC Distribution Width SD 41.8 fl (35.1-43.9); Red Blood Count 5.59 M/mm3 (4.6-6.2); White Blood Count 7.8 K/mm3 (4.4-11.0)
[2023-09-25 11:14] LABS: Vitamin D,25 Hydroxy 31.3 ng/mL
[2023-09-25 11:33] LABS: AST(SGOT) 26 U/L (15-37); Alanine Aminotransfer ALT/SGPT 39 U/L (16-61); Albumin, Serum 3.6 g/dL (3.2-5.0); Alkaline Phosphatase 67 U/L (45-117); Anion Gap 1 (5-15); BUN 22 mg/dL (7-18); BUN/Creat Ratio 16.4 RATIO (10-20); Calcium,Total 9.1 mg/dL (8.5-10.1); Chloride 109 mmol/L (98-107); Creatinine, Serum 1.34 mg/dL (0.70-1.30); EST Glomerular Filtration Rate 57 mL/min (>60); Est Glom Filt Rate - Afr Amer 68 mL/min (>60); Globulin 3.7 g/dL (2.2-4.2); Glucose 107 mg/dL (74-106); Potassium 3.9 mmol/L (3.5-5.1); Protein, Total 7.3 g/dL (6.4-8.2); Sodium Level 139 mmol/L (136-145); Thyroid Stim Hormone (TSH) 1.25 uIU/mL (0.358-3.74)
== END | disposition home or self-care (01) ==
LOC: POLAB3 09:35
PROVIDERS: PCP Family Medicine Geriatric Medicine; Visit Provider Family Medicine Geriatric Medicine
DX: I10 Essential (primary) hypertension (principal); E55.9 Vitamin D deficiency, unspecified
CPT/HCPCS: 36415; 80053; 82306; 84443; 85025

== ENCOUNTER → 2023-11-24 | Outpatient (CLI) | payer MEDICARE, OTHER, SELFPAY ==
[2023-11-24 10:38] LABS: PSA,Total- Diagnostic 4.27 ng/mL (0.0-4.0)
== END | disposition home or self-care (01) ==
LOC: LAB 09:02
PROVIDERS: PCP Family Medicine Geriatric Medicine; Referring Provider Nurse Practitioner; Visit Provider Nurse Practitioner
DX: C61 Malignant neoplasm of prostate (principal)
CPT/HCPCS: 36415; 84153

== ENCOUNTER → 2024-02-27 | Outpatient (CLI) | payer MEDICARE, OTHER, SELFPAY | END | disposition home or self-care (01) | LOC: PSN 08:55 | PROVIDERS: PCP Family Medicine Geriatric Medicine; Referring Provider Family Medicine Geriatric Medicine; Visit Provider Family Medicine Geriatric Medicine | DX: R68.83 Chills (without fever) (principal) | CPT/HCPCS: 87631 ==

== ENCOUNTER → 2024-03-29 | Outpatient (CLI) | payer MEDICARE, OTHER, SELFPAY ==
[2024-03-29 11:10] LABS: Absolute Lymphocyte Count 2.38 X10^3/uL (0.83-4.51); Absolute Neutrophil Count 4.1 X10^3/uL (2.0-7.7); Basophil# 0.03 X10^3/uL; Basophil% 0.4 % (0-1); Eosinophil# 0.11 X10^3/uL; Eosinophils% 1.5 % (0-5); Hematocrit 47.3 % (40-54); Hemoglobin 15.8 g/dL (13.0-16.5); Lymphocyte # 2.38 X10^3/ul (0.83-4.51); Lymphocyte % 31.6 % (19-41); Mean Corp Hgb Conc 33.4 g/dL (32-36); Mean Corpuscular Volume 92.9 fL (80-94); Mean Platelet Vol. 9.8 fl (6.2-12.0); Monocyte# 0.87 X10^3/uL; Monocyte% 11.6 % (0-10); NRBC Flagged by Analyzer 0 % (0-5); Neutrophil % 54.5 % (47-70); Platelet Count 182 K/mm3 (150-450); RBC Distribution Width CV 12.9 % (11.6-14.6); RBC Distribution Width SD 43.9 fl (35.1-43.9); Red Blood Count 5.09 M/mm3 (4.6-6.2); White Blood Count 7.5 K/mm3 (4.4-11.0)
[2024-03-29 11:58] LABS: Vitamin D,25 Hydroxy 35.7 ng/mL
[2024-03-29 12:11] LABS: ALB/GLOB Ratio 1.1 RATIO (0.9-2.4); AST(SGOT) 29 U/L (15-37); Alanine Aminotransfer ALT/SGPT 59 U/L (16-61); Albumin, Serum 3.8 g/dL (3.2-5.0); Alkaline Phosphatase 67 U/L (45-117); Anion Gap 4 (5-15); BUN 20 mg/dL (7-18); BUN/Creat Ratio 16.4 RATIO (10-20); Chloride 109 mmol/L (98-107); Creatinine, Serum 1.22 mg/dL (0.70-1.30); EST Glomerular Filtration Rate 63 mL/min (>60); Est Glom Filt Rate - Afr Amer 76 mL/min (>60); Globulin 3.4 g/dL (2.2-4.2); Glucose 93 mg/dL (74-106); PSA,Total - Annual Screen 4.88 ng/mL (0.00-4.00); Potassium 4.4 mmol/L (3.5-5.1); Protein, Total 7.2 g/dL (6.4-8.2); Sodium Level 141 mmol/L (136-145)
== END | disposition home or self-care (01) ==
LOC: POLAB3 10:59
PROVIDERS: PCP Family Medicine Geriatric Medicine; Visit Provider Family Medicine Geriatric Medicine
DX: I10 Essential (primary) hypertension (principal); E55.9 Vitamin D deficiency, unspecified; Z12.5 Encounter for screening for malignant neoplasm of prostate
CPT/HCPCS: 36415; 80053; 82306; 84153; 84443; 85025; G0103

== ENCOUNTER → 2024-06-04 | Outpatient (CLI) | payer MEDICARE, OTHER, SELFPAY ==
[2024-06-04 13:50] LABS: PSA,Total- Diagnostic 3.97 ng/mL (0.0-4.0)
== END | disposition home or self-care (01) ==
LOC: LAB 12:54
PROVIDERS: PCP Family Medicine Geriatric Medicine; Referring Provider Urology; Visit Provider Urology
DX: C61 Malignant neoplasm of prostate (principal)
CPT/HCPCS: 36415; 84153

== ENCOUNTER → 2024-09-27 | Outpatient (CLI) | payer MEDICARE, OTHER, SELFPAY ==
[2024-09-27 10:07] LABS: Absolute Lymphocyte Count 2.93 X10^3/uL (0.83-4.51); Basophil# 0.06 X10^3/uL; Basophil% 0.7 % (0-1); Eosinophil# 0.26 X10^3/uL; Eosinophils% 3.2 % (0-5); Hematocrit 49.5 % (40-54); Hemoglobin 16.6 g/dL (13.0-16.5); Lymphocyte # 2.93 X10^3/ul (0.83-4.51); Lymphocyte % 35.7 % (19-41); Mean Corp Hgb Conc 33.5 g/dL (32-36); Mean Corpuscular Hgb 31.6 pg (27.0-32.0); Mean Corpuscular Volume 94.3 fL (80-94); Mean Platelet Vol. 10.4 fl (6.2-12.0); Monocyte# 0.93 X10^3/uL; Monocyte% 11.3 % (0-10); NRBC Flagged by Analyzer 0 % (0-5); Neutrophil # 3.99 X10^3/uL (2.7-7.7); Neutrophil % 48.7 % (47-70); Platelet Count 176 K/mm3 (150-450); RBC Distribution Width CV 12.8 % (11.6-14.6); RBC Distribution Width SD 43.9 fl (35.1-43.9); Red Blood Count 5.25 M/mm3 (4.6-6.2); White Blood Count 8.2 K/mm3 (4.4-11.0)
--- NOTE | 2024-09-27 10:40 | RAD_ITS ---
EXAM: XR Right Hip With Pelvis When Performed, 2 or 3 Views CLINICAL INDICATION: TECHNIQUE: Two or three views of the right hip with pelvis when performed. COMPARISON: No relevant prior studies available. FINDINGS: BONES/JOINTS: Mild degenerative change of the right hip joint. No acute fracture. No dislocation. SOFT TISSUES: Unremarkable. RAD/HIP, UNI W/ Pelvis 2-3 Views IMPRESSION: Degenerative changes as above. Reading Location: [facility]
[2024-09-27 10:46] LABS: Vitamin D,25 Hydroxy 28.9 ng/mL
[2024-09-28 07:03] LABS: ALB/GLOB Ratio 1.1 RATIO (0.9-2.4); AST(SGOT) 28 U/L (15-37); Alanine Aminotransfer ALT/SGPT 36 U/L (16-61); Albumin, Serum 3.8 g/dL (3.2-5.0); Alkaline Phosphatase 62 U/L (45-117); Anion Gap 4 (5-15); BUN 16 mg/dL (7-18); BUN/Creat Ratio 13.6 RATIO (10-20); Chloride 107 mmol/L (98-107); Creatinine, Serum 1.18 mg/dL (0.70-1.30); EST Glomerular Filtration Rate 65 mL/min (>60); Est Glom Filt Rate - Afr Amer 79 mL/min (>60); Globulin 3.5 g/dL (2.2-4.2); Glucose 99 mg/dL (74-106); Potassium 4.1 mmol/L (3.5-5.1); Protein, Total 7.3 g/dL (6.4-8.2); Sodium Level 141 mmol/L (136-145)
== END | disposition home or self-care (01) ==
LOC: POLAB3 09:53
PROVIDERS: PCP Family Medicine Geriatric Medicine; Visit Provider Family Medicine Geriatric Medicine
DX: I10 Essential (primary) hypertension (principal); E55.9 Vitamin D deficiency, unspecified; M16.11 Unilateral primary osteoarthritis, right hip
CPT/HCPCS: 36415; 73502; 80053; 82306; 84443; 85025

== ENCOUNTER → 2025-03-04 | Outpatient (CLI) | payer MEDICARE, OTHER, SELFPAY | END | disposition home or self-care (01) | LOC: RAD 11:33 | PROVIDERS: PCP Family Medicine Geriatric Medicine; Referring Provider Family Medicine Geriatric Medicine; Visit Provider Family Medicine Geriatric Medicine | DX: M54.50 Low back pain, unspecified (principal) | CPT/HCPCS: 72110 ==

== ENCOUNTER → 2025-03-09 | Outpatient (CLI) | payer MEDICARE, OTHER, SELFPAY ==
--- NOTE | 2025-03-09 15:26 | MRI_ITS ---
PROCEDURE: SPINE LUMBAR (ROUTINE) 03/09/2025 REASON FOR EXAM: SPINAL STENOSIS TECHNIQUE: SPINE LUMBAR (ROUTINE) COMPARISON: X-ray lumbar spine March 04, 2025. FINDINGS: Vertebrae: Preserved in height and signal. Alignment: Normal alignment. Conus Medullaris: Unremarkable. L1-2: No foraminal or canal stenosis. L2-3: No foraminal or canal stenosis. L3-4: No foraminal or canal stenosis. L4-5: Disc bulge. Facet joint arthropathy with fluid effusion. Mild inferior bilateral foramina stenosis. No canal stenosis. L5-S1: Disc desiccation. Disc bulge. Facet joint arthropathy. Mild bilateral foramina stenosis. No canal stenosis. Sacrum: Unremarkable. MRI/Spine Lumbar (Routine) IMPRESSION: L4-L5, facet joint arthropathy with fluid effusion sigmoid bilateral foramina s tenosis. No canal stenosis. L5-S1, mild bilateral foramina stenosis from facet joint arthropathy and disc b ulge. Reading Location: [id number]
== END | disposition home or self-care (01) ==
LOC: MRI 15:24
PROVIDERS: PCP Family Medicine Geriatric Medicine; Referring Provider Family Medicine Geriatric Medicine; Visit Provider Family Medicine Geriatric Medicine
DX: M48.061 Spinal stenosis, lumbar region without neurogenic claudication (principal); M54.50 Low back pain, unspecified
CPT/HCPCS: 72148

== ENCOUNTER → 2025-03-31 | Outpatient (CLI) | payer MEDICARE, OTHER, SELFPAY ==
[2025-03-31 10:46] LABS: Hematocrit 50.3 % (40-54); Hemoglobin 16.9 g/dL (13.0-16.5); Immature Granulocytes Count 0.030 X10^3/uL (0.0-0.0); Mean Corp Hgb Conc 33.6 g/dL (32-36); Mean Corpuscular Volume 96.0 fL (80-94); Mean Platelet Vol. 10.0 fl (6.2-12.0); NRBC Flagged by Analyzer 0 % (0-5); Platelet Count 181 K/mm3 (150-450); RBC Distribution Width CV 12.5 % (11.6-14.6); RBC Distribution Width SD 44.6 fl (35.1-43.9); Red Blood Count 5.24 M/mm3 (4.6-6.2); White Blood Count 7.5 K/mm3 (4.4-11.0)
[2025-03-31 11:56] LABS: PSA,Total- Diagnostic 3.84 ng/mL (0.00-4.00); Vitamin D,25 Hydroxy 34.7 ng/mL (30-100)
[2025-03-31 11:58] LABS: AST(SGOT) 29 U/L (<=37); Alanine Aminotransfer ALT/SGPT 36 U/L (<=46); Albumin, Serum 4.5 g/dL (3.4-4.8); Alkaline Phosphatase 57 U/L (40-129); Anion Gap 10 (5-15); BUN 29 mg/dL (4-19); BUN/Creat Ratio 27.2 RATIO (10-20); Calcium,Total 9.8 mg/dL (7.6-11.0); Carbon Dioxide 27.4 mmol/L (21.0-32.0); Chloride 104 mmol/L (98-108); Globulin 2.9 g/dL (2.2-4.2); Glucose 68 mg/dL (70-99); Potassium 4.0 mmol/L (3.3-5.1)
[2025-03-31 18:00] LABS: Xtra Tube Kwok EXTRA TUBE
== END | disposition home or self-care (01) ==
LOC: POLAB3 09:59
PROVIDERS: PCP Family Medicine Geriatric Medicine; Visit Provider Family Medicine Geriatric Medicine
DX: I10 Essential (primary) hypertension (principal); E03.9 Hypothyroidism, unspecified; E55.9 Vitamin D deficiency, unspecified; R97.20 Elevated prostate specific antigen [PSA]
CPT/HCPCS: 36415; 80053; 82306; 84153; 84443; 85025

== ENCOUNTER → 2025-06-02 | Outpatient (CLI) | payer MEDICARE, OTHER, SELFPAY ==
[2025-06-02 13:25] LABS: PSA,Total- Diagnostic 3.75 ng/mL (0.00-4.00)
== END | disposition home or self-care (01) ==
LOC: LAB 11:56
PROVIDERS: PCP Family Medicine Geriatric Medicine; Referring Provider Nurse Practitioner; Visit Provider Nurse Practitioner
DX: C61 Malignant neoplasm of prostate (principal)
CPT/HCPCS: 36415; 84153

== ENCOUNTER → 2025-06-16 | Outpatient (CLI) | payer MEDICARE, OTHER, SELFPAY ==
[2025-06-16 12:33] LABS: Hematocrit 46.9 % (40-54); Hemoglobin 16.0 g/dL (13.0-16.5); Mean Corp Hgb Conc 34.1 g/dL (32-36); Mean Corpuscular Volume 95.9 fL (80-94); Mean Platelet Vol. 10.4 fl (6.2-12.0); Platelet Count 171 K/mm3 (150-450); RBC Distribution Width CV 12.8 % (11.6-14.6); RBC Distribution Width SD 45.5 fl (35.1-43.9); Red Blood Count 4.89 M/mm3 (4.6-6.2); White Blood Count 8.6 K/mm3 (4.4-11.0)
[2025-06-16 13:37] LABS: AST(SGOT) 31 U/L (<=37); Alanine Aminotransfer ALT/SGPT 38 U/L (<=46); Albumin, Serum 4.1 g/dL (3.4-4.8); Alkaline Phosphatase 58 U/L (40-129); Anion Gap 9 (5-15); BUN 20 mg/dL (4-19); BUN/Creat Ratio 18.7 RATIO (10-20); Calcium,Total 9.6 mg/dL (7.6-11.0); Carbon Dioxide 28.1 mmol/L (21.0-32.0); Chloride 106 mmol/L (98-108); Globulin 2.6 g/dL (2.2-4.2); Glucose 110 mg/dL (70-99); Magnesium 2.2 mg/dL (1.5-2.2); Potassium 4.1 mmol/L (3.3-5.1)
== END | disposition home or self-care (01) ==
LOC: LAB 11:31
PROVIDERS: PCP Family Medicine Geriatric Medicine; Referring Provider Internal Medicine Cardiovascular Disease; Visit Provider Internal Medicine Cardiovascular Disease
DX: I87.2 Venous insufficiency (chronic) (peripheral) (principal); R60.0 Localized edema; I47.10 Supraventricular tachycardia, unspecified; E78.5 Hyperlipidemia, unspecified
CPT/HCPCS: 36415; 80053; 83735; 84443; 85027

== ENCOUNTER → 2025-06-23 | Outpatient (CLI) | payer MEDICARE, OTHER, SELFPAY ==
[2025-06-23 12:23] LABS: Anion Gap 10 (5-15); BUN 19 mg/dL (4-19); BUN/Creat Ratio 17.5 RATIO (10-20); Calcium,Total 8.9 mg/dL (7.6-11.0); Carbon Dioxide 23.4 mmol/L (21.0-32.0); Chloride 108 mmol/L (98-108); Glucose 113 mg/dL (70-99); Potassium 3.8 mmol/L (3.3-5.1)
== END | disposition home or self-care (01) ==
LOC: LAB 10:31
PROVIDERS: PCP Family Medicine Geriatric Medicine; Referring Provider Internal Medicine Cardiovascular Disease; Visit Provider Internal Medicine Cardiovascular Disease
DX: I87.2 Venous insufficiency (chronic) (peripheral) (principal); R60.0 Localized edema; E78.5 Hyperlipidemia, unspecified; I47.10 Supraventricular tachycardia, unspecified
CPT/HCPCS: 36415; 80048

== ENCOUNTER → 2025-07-08 | Outpatient (CLI) | payer MEDICARE, OTHER, SELFPAY ==
--- OUTSIDE RECORDS SUMMARY | 2025-07-08 06:46 | XMS RPT_ITS | CCD ---
Author Organization [facility] Care Team Providers Care Rod Welder Name Role Phone Alethea Lutz Unavailable Unavailable LutzAlethea Unavailable Unavailable Charlotte, Yandel Chi Primary Care Provider Jose Almodovar Unavailable Charlotte VAZQUEZ, Dr. Yandel Segundo Primary Care Provider [phone] Charlotte VAZQUEZ, Dr. Yandel Segundo Attending Provider [phone] Charlotte VAZQUEZ, Dr. Yandel Segundo Referring Provider [phone] CHARLOTTE, YANDEL CHI Attending Unavailable CHARLOTTE, YANDEL CHI Consulting Unavailable CHARLOTTE, YANDEL CHI Primary Care Unavailable CHARLOTTE, YANDEL CHI Admitting Unavailable PROVIDER, UNKNOWN Consulting Unavailable PROVIDER, UNKNOWN Consulting Unavailable Charlotte, Yandel Chi Primary Care Unavailable Ellsworth, Alethea Attending Unavailable Ellsworth, Alethea Referring Unavailable Charlotte, Yandel Chi Attending Unavailable Charlotte, Yandel Chi Primary Care Unavailable Charlotte, Yandel Chi Attending Unavailable Charlotte, Yandel Chi Referring Unavailable Charlotte, Yandel Chi Primary Care Unavailable Charlotte, Yandel Chi Attending Unavailable Charlotte, Yandel Chi Referring Unavailable Charlotte, Yandel Chi Primary Care Unavailable Charlotte, Yandel Chi Attending Unavailable Charlotte, Yandel Chi Primary Care Unavailable Allergies Allergy Classification Reported Allergen(s) Allergy Type Date of Onset Reaction(s) Facility (2 sources) Penicillins (Antibiotic) drug allergy 08-22-2014 [facility] Work Phone: (9 sources) Penicillins Allergy to substance 02-20-2021 [facility] (1 source) Penicillins Drug allergy (disorder) 02-20-2021 [facility] Repository Medications Current Medications Medication Drug Class(es) Dates Sig (Normalized) Sig (Original) pantoprazole 40 mg delayed release oral tablet (11 sources) Proton Pump Inhibitor Start: 06-01-2020 take 1 tablet by mouth once daily Pantoprazole 40 mg tablet,delayed release (DR/EC) Active 40 mg PO DAILY June 01, 2020 12:00am Start: 05-17-2020 take 1 tablet by ye th once daily before breakfast pantoprazole DR (PROTONIX) 40 mg tablet Take 40 mg by mouth daily before breakfast. 0 05/17/2020 Active Comment on above: Take 40 mg by mouth daily before breakfast. simethicone 80 mg chewable tablet (9 sources) Start: 02-20-2021 Simethicone (Gas Relief (Simethicone)) 80 mg tablet,chewable Active 80 mg PO 2 to 4 times per day as needed February 20, 2021 12:00am Completed/Discontinued Medications Medication Drug Class(es) Dates Sig (Normalized) Sig (Original) aspirin 81 mg delayed release oral tablet (13 sources) Platelet Aggregation Inhibitor, Nonsteroidal Anti-inflammatory Drug Start: 10-19-2017 End: 06-01-2020 take 1 tablet by mouth once daily Aspirin 81 mg tablet,delayed release (DR/EC) Discontinued 81 mg PO daily 30 30 0 October 19, 2017 12:00am June 01, 2020 4:02pm Start: 08-22-2014 take 1 tablet by ye th once daily ASPIRIN 81 MG TABS One tablet by mouth daily ASPIRIN [id number] Luciano Greer MD Start: 08-22-2014 take 1 tablet by ye th once daily ASPIRIN 81 MG TABS One tablet by mouth daily ASPIRIN [id number] Luciano Greer MD Start: 08-22-2014 take 1 tablet by ye th once daily ASPIRIN EC 81 MG TBEC One tablet by mouth daily ASPIRIN [id number] Aundrea Geiger RN hydroCHLOROthiazide 12.5 mg oral tablet (20 sources) Thiazide Diuretic Start: 10-02-2017 End: 11-26-2024 take 1 tablet by mouth once daily in the morning Hydrochlorothiazide 12.5 mg tablet Discontinued 12.5 mg PO EVERY MORNING 90 December 05, 2023 3:56pm November 26, 2024 4:46pm Start: 10-03-2016 take 1 tablet by ye th once daily HYDROCHLOROTHIAZIDE 12.5 MG TABS One tablet by mouth daily HYDROCHLOROTHIAZIDE [id number] Luciano Greer MD Comment on above: Take 12.5 mg by mout h every morning. pravastatin sodium 40 mg oral tablet (9 sources) HMG-CoA Reductase Inhibitor Start: 05-17-20 End: 11-30-19 take 1 tablet by mouth at bedtime Pravastatin 40 mg tablet Discontinued 40 mg PO AT BEDTIME May 17, 2019 12:00am November 30, 2019 3:47pm tadalafil 20 mg oral tablet (11 sources) Phosphodiesterase 5 Inhibitor Start: 10-20-19 End: 06-02-20 Tadalafil 20 mg tablet Discontinued PO 30 October 19, 2017 12:00am June 02, 2018 2:43pm Start: 10-19-2017 End: 06-02-2018 Tadalafil Discontinued PO October 19, 2017 12:00am June 02, 2018 2:43pm Start: 08-22-2014 CIALIS 20 MG T ABS as needed TADALAFIL [id number] María Doran RN Problems Active Problems Problem Classification Problem Date Documented Da te Episodic/Chronic Cancer of prostate (10 sources) Malignant tumor of prostate; Translations: [Malignant neoplasm of prostate] Onset: 5 02-20-2021 Chronic Cardiac dysrhythmias (11 sources) Supraventricular tachycardia; Translations: [Nonsustained paroxysmal supraventricular tachycardia] Onset: 5 08-22-2014 Chronic Comment on above: 7 beats during sleep study in 2013 Disorders of lipid metabolism (9 sources) Hyperlipidemia; Translations: [Hyperlipidemia, unspecified] 11-30-2019 Chronic Essential hypertension (1 source) Essential (primary) hypertension; Translations: [Essential (primary) hypertension] Onset: 5 Chronic Other diseases of veins and lymphatics (9 sources) Venous insufficiency of leg; Translations: [Venous insufficiency (chronic) (peripheral)] 02-20-2021 Episodic Other gastrointestinal disorders (1 source) Esophageal dysphagia; Translations: [Esophageal dysphagia] Episodic Residual codes; unclassified (11 sources) Obstructive sleep apnea syndrome; Translations: [Obstructive sleep apnea (adult) (pediatric)] Onset: 5 08-22-2014 Chronic Residual codes; unclassified (9 sources) Edema of lower extremity; Translations: [Localized edema] 02-20-2021 Episodic Spondylosis; intervertebral disc disorders; other back problems (1 source) Spinal stenosis, lumbar region without neurogenic claudication; Translations: [Spinal stenosis, lumbar region without neurogenic claudication] Onset: 5 Episodic Unclassified (2 sources) Low back pain, unspecified; Translations: [Low back pain, unspecified] Onset: 5 Unclassified (1 source) Low back pain, unspecified; Translations: [Low back pain, unspecified] Onset: 5 Past or Other Problems Problem Classification Problem [...] Translations: [Family history of stroke] 08-22-2014 Episodic Unclassified (1 source) Low back pain, unspecified; Translations: [Low back pain, unspecified] Onset: 03-09-2025 Results Test Name Value Interpretation Reference Range Facility PSA,Total- Diagnosticon 10-3 PSA, DIAGNOSTIC 3.75 ng/mL Normal 0.00-4.00 [facility] Comment on above: Result Comment: This test was performed using the [facility] tPSA method. Measured values of a patient??sample can vary depending on the testing procedure used. PSA values determined on patient samples by different testing procedures cannot be used interchangeably. If there is a change in PSA assays while monitoring therapy, sequential testing should be performed to confirm baseline values. Performed By: #### L 501.9940 #### [facility] [address] [place], [address] Absolute lymphocyte countOrd ered By: Yandel Porter on 03-31-2025 Lymphocytes Auto (Unsp spec) [#/Vol] 2.47 10*3/uL 0.83-4.51 [facility] Absolute neutrophil countOrd ered By: Yandel Porter on 03-31-2025 Neutrophils (Bld) [#/Vol] 4.0 10*3/uL 2.0-7.7 [facility] Anion gap in Serum or Plasma Ordered By: Yandel Charlotte on 03-31-2025 Anion gap [Moles/Vol] 10 mmol/L 5-15 [facility] Automated blood erythrocyte countOrdered By: Yandel Charlotte on 03-31-2025 RBC (Bld) [#/Vol] 5.24 10*6/uL Normal 4.6-6.2 [facility] Comment on above: Performed By: #### L 506.1001, L501.9940, L501.9520, L500.4050, L100.0100 #### [facility] [address] [place], [place], [id number] Automated blood hematocrit ( percentage)Ordered By: Yandel Charlotte on 03-31-2025 Hematocrit (Bld) [Volume fraction] 50.3 % Normal 40-54 [facility] Comment on above: Performed By: #### L 506.1001, L501.9940, L501.9520, L500.4050, L100.0100 #### [facility] [address] [place], [place], [id number] Automated lymphocyte count a s percentage of total leukocytesOrdered By: Yandel Charlotte on 03-31-2025 Lymphocytes/100 WBC Auto (Unsp spec) 32.8 % 19-41 [facility] BUN/creatinine ratioOrdered By: Yandel Charlotte on 03-31-2025 Urea nitrogen/Creatinine [Mass ratio] 27.2 mg/mg High 10-20 [facility] Basophil percentageOrdered B y: Yandel Charlotte on 03-31-2025 Basophils/100 WBC (Bld) 0.5 % Normal 0-1 [facility] Comment on above: Performed By: #### L 506.1001, L501.9940, L501.9520, L500.4050, L100.0100 #### [facility] [address] [place], [address] Bilirubin, totalOrdered By: Yandel Porter on 03-31-2025 Bilirubin [Mass/Vol] 0.90 mg/dL Normal 0.00-1.30 [facility] Comment on above: Performed By: #### L 506.1001, L501.9940, L501.9520, L500.4050, L100.0100 #### [facility] [address] [place], [address] CBC W/Diff, Automatedon 03-05 Absolute Lymph 2.47 X10 3/uL Normal 0.83-4.51 [facility] Comment on above: Performed By: #### L 506.1001, L501.9940, L501.9520, L500.4050, L100.0100 #### [facility] [address] [place], [address] Absolute Neut 4.0 X10 3/uL Normal 2.0-7.7 [facility] Comment on above: Performed By: #### L 506.1001, L501.9940, L501.9520, L500.4050, L100.0100 #### [facility] [address] [place], [address] IG% 0.400 Normal 0.0-0.9 [facility] Comment on above: Result Comment: IG% - Immature Granulocytes (promyelocytes, myelocytes and metamyelocytes) > 1% indicates that a LEFT SHIFT is Present. Performed By: #### L 506.1001, L501.9940, L501.9520, L500.4050, L100.0100 #### [facility] [address] [place], [address] Lymphocytes/100 WBC (Bld) 32.8 % Normal 19-41 [facility] Comment on above: Performed By: #### L 506.1001, L501.9940, L501.9520, L500.4050, L100.0100 #### [facility] [address] [place], [address] Nucleated RBC (Bld) [#/Vol] 0 10*3/uL Normal 0-5 [facility] Comment on above: Performed By: #### L 506.1001, L501.9940, L501.9520, L500.4050, L100.0100 #### [facility] [address] [place], [address] RDW SD 44.6 fl High 35.1-43.9 [facility] Comment on above: Performed By: #### L 506.1001, L501.9940, L501.9520, L500.4050, L100.0100 #### [facility] [address] [place], [address] Carbon dioxide, total [Moles /volume] in Central venous bloodOrdered By: Yandel Porter on 03-31-2025 CO2 [Moles/Vol] 27.4 mmol/L Normal 21.0-32.0 [facility] Comment on above: Performed By: #### L 506.1001, L501.9940, L501.9520, L500.4050, L100.0100 #### [facility] [address] [place], [address] Chloride assayOrdered By: Nasir Porter on 03-31-2025 Chloride [Moles/Vol] 104 mmol/L Normal 98-108 [facility] Comment on above: Performed By: #### L 506.1001, L501.9940, L501.9520, L500.4050, L100.0100 #### [facility] [address] [place], [address] Comprehensive Metabolic Prof ilon 03-31-2025 ALK PHOS 57 U/L Normal 40-129 [facility] Comment on above: Performed By: #### L 506.1001, L501.9940, L501.9520, L500.4050, L100.0100 #### [facility] [address] [place], [address] BUN/CRE 27.2 RATIO High 10-20 [facility] Comment on above: Performed By: #### L 506.1001, L501.9940, L501.9520, L500.4050, L100.0100 #### [facility] [address] [place], [address] GAP 10 Normal 5-15 [facility] Comment on above: Performed By: #### L 506.1001, L501.9940, L501.9520, L500.4050, L100.0100 #### [facility] [address] [place], [address] Potassium [Moles/Vol] 4.0 mmol/L Normal 3.3-5.1 [facility] Comment on above: Result Comment: Hemo lysis present, Results??could be affected. ?? Performed By: #### L 506.1001, L501.9940, L501.9520, L500.4050, L100.0100 #### [facility] [address] [place], [address] T PROT 7.4 g/dL Normal 5.9-8.4 [facility] Comment on above: Performed By: #### L 506.1001, L501.9940, L501.9520, L500.4050, L100.0100 #### [facility] [address] [place], [address] Comprehensive Metabolic Prof ilOrdered By: Yandel Porter on 03-31-2025 AST [Catalytic activity/Vol] 29 U/L Normal <=37 [facility] Comment on above: Performed By: #### L 506.1001, L501.9940, L501.9520, L500.4050, L100.0100 #### [facility] [address] [place], [place], [id number] Eosinophil percentageOrdered By: Yandel Porter on 03-31-2025 Eosinophils/100 WBC (Bld) 1.2 % Normal 0-5 [facility] Comment on above: Performed By: #### L 506.1001, L501.9940, L501.9520, L500.4050, L100.0100 #### [facility] [address] [place], [place], [id number] Erythrocyte distribution wid th ratioOrdered By: Yandel Porter on 03-31-2025 Erythrocyte distribution width (RBC) [Ratio] 12.5 % Normal 11.6-14.6 [facility] Comment on above: Performed By: #### L 506.1001, L501.9940, L501.9520, L500.4050, L100.0100 #### [facility] [address] [facility] [place], [place], [id number] Erythrocyte distribution wid th standard deviationOrdered By: Yandel Porter on 03-31-2025 Erythrocyte distribution width (RBC) [Ratio] 44.6 fl High 35.1-43.9 [facility] Glomerular filtration rate ( GFR) estimation/1.73 sq m using serum, plasma, or whole bOrdered By: Yandel Porter on 03-31-2025 GFR/1.73 sq M.predicted among non-blacks MDRD (S/P/Bld) [Vol rate/Area] 77 mL/min/{1.73_m2} Normal >60 [facility] Comment on above: mL/min/1.73m2 CKD-EP I Creatinine Equation (2020) Result Comment: mL/m in/1.73m2 CKD-EPI Creatinine Equation (2020) Performed By: #### L 506.1001, L501.9940, L501.9520, L500.4050, L100.0100 #### [facility] [address] [place], [place], [id number] Hemoglobin measurementOrdere d By: Yandel Porter on 03-31-2025 Hemoglobin (Bld) [Mass/Vol] 16.9 g/dL High 13.0-16.5 [facility] Comment on above: Performed By: #### L 506.1001, L501.9940, L501.9520, L500.4050, L100.0100 #### [facility] [address] [place], [address] Immature granulocytes/100 WB C Auto (Bld)Ordered By: Yandel Porter on 03-31-2025 Immature granulocytes/100 WBC (Bld) 0.400 % 0.0-0.9 [facility] Comment on above: IG% - Immature Granu locytes (promyelocytes, myelocytes and metamyelocytes) > 1% indicates that a LEFT SHIFT is Present. MCV (mean corpuscular volume ) determinationOrdered By: Yandel Porter on 03-31-2025 MCV (RBC) [Entitic vol] 96.0 fL High 80-94 [facility] Comment on above: Performed By: #### L 506.1001, L501.9940, L501.9520, L500.4050, L100.0100 #### [facility] [address] [place], [address] Mean corpuscular hemoglobin (MCH) determinationOrdered By: Yandel Porter on 03-31-2025 MCH (RBC) [Entitic mass] 32.3 pg High 27.0-32.0 [facility] Comment on above: Performed By: #### L 506.1001, L501.9940, L501.9520, L500.4050, L100.0100 #### [facility] [address] [place], [place], [id number] Mean corpuscular hemoglobin concentration (MCHC) determinationOrdered By: Yandel Porter on 03-31-2025 MCHC (RBC) [Mass/Vol] 33.6 g/dL Normal 32-36 [facility] Comment on above: Performed By: #### L 506.1001, L501.9940, L501.9520, L500.4050, L100.0100 #### [facility] [address] [place], [place], [id number] (408) Mean platelet volume determi nationOrdered By: Yandel Porter on 03-31-2025 Platelet mean volume (Bld) [Entitic vol] 10.0 fL Normal 6.2-12.0 [facility] Comment on above: Performed By: #### L 506.1001, L501.9940, L501.9520, L500.4050, L100.0100 #### [facility] [address] [place], [place], [id number] ([address]) Monocyte percentageOrdered B y: Yandel Porter on 03-31-2025 Monocytes/100 WBC (Bld) 12.5 % High 0-10 [facility] Comment on above: Performed By: #### L 506.1001, L501.9940, L501.9520, L500.4050, L100.0100 #### [facility] [address] [place], [address] Neutrophil percentageOrdered By: Yandel Porter on 03-31-2025 Neutrophils/100 WBC (Bld) 52.6 % Normal 47-70 [facility] Comment on above: Performed By: #### L 506.1001, L501.9940, L501.9520, L500.4050, L100.0100 #### [facility] [address] [place], [place], [phone] ([phone] Nucleated red blood cell per centageOrdered By: Yandel Porter on 03-31-2025 Nucleated RBC/100 WBC (Bld) [Ratio] 0 % 0-5 [facility] PSA,Total- Diagnosticon 08 PSA, DIAGNOSTIC 3.84 ng/mL Normal 0.00-4.00 [facility] Comment on above: Result Comment: This test was performed using the [facility] tPSA method. Measured values of a patient??sample can vary depending on the testing procedure used. PSA values determined on patient samples by different testing procedures cannot be used interchangeably. If there is a change in PSA assays while monitoring therapy, sequential testing should be performed to confirm baseline values. Performed By: #### L 506.1001, L501.9940, L501.9520, L500.4050, L100.0100 #### [facility] [address] [place], [address] Platelet countOrdered By: Nasir Porter on 03-31-2025 Platelets (Bld) [#/Vol] 181 10*3/uL Normal 150-450 [facility] Comment on above: Performed By: #### L 506.1001, L501.9940, L501.9520, L500.4050, L100.0100 #### [facility] [address] [place], [place], [id number] Potassium measurement (mass/ volume)Ordered By: Yandel Porter on 03-31-2025 Potassium (Unsp spec) [Mass/Vol] 4.0 mmol/L 3.3-5.1 [facility] Comment on above: Hemolysis present, R esults could be affected. Serum creatinine measurement (mass/volume)Ordered By: Yandel Porter on 03-31-2025 Creatinine [Mass/Vol] 1.05 mg/dL Normal 0.70-1.20 [facility] Comment on above: Performed By: #### L 506.1001, L501.9940, L501.9520, L500.4050, L100.0100 #### [facility] [address] [place], [address] Serum globulin measurementOr dered By: Yandel Porter on 03-31-2025 Globulin (S) [Mass/Vol] 2.9 g/dL Normal 2.2-4.2 [facility] Comment on above: Performed By: #### L 506.1001, L501.9940, L501.9520, L500.4050, L100.0100 #### [facility] [address] [place], [address] Serum glucose measurement (m ass/volume)Ordered By: Yandel Porter on 03-31-2025 Glucose [Mass/Vol] 68 mg/dL Low 70-99 [facility] Comment on above: Performed By: #### L 506.1001, L501.9940, L501.9520, L500.4050, L100.0100 #### [facility] [address] [place], [address] Serum or plasma alanine milligan otransferase (ALT) measurementOrdered By: Yandel Porter on 03-31-2025 ALT [Catalytic activity/Vol] 36 U/L Normal <=46 [facility] Comment on above: Performed By: #### L 506.1001, L501.9940, L501.9520, L500.4050, L100.0100 #### [facility] [address] [place], [address] Serum or plasma albumin devan urement (mass/volume)Ordered By: Yandel Porter on 03-31-2025 Albumin [Mass/Vol] 4.5 g/dL Normal 3.4-4.8 [facility] Comment on above: Performed By: #### L 506.1001, L501.9940, L501.9520, L500.4050, L100.0100 #### [facility] [address] [place], [address] Serum or plasma albumin/glob ulin mass ratioOrdered By: Yandel Porter on 03-31-2025 Albumin/Globulin [Mass ratio] 1.5 {ratio} Normal 0.9-2.4 [facility] Comment on above: Performed By: #### L 506.1001, L501.9940, L501.9520, L500.4050, L100.0100 #### [facility] [address] [place], [place], [id number] Serum or plasma alkaline gladys sphatase measurementOrdered By: Yandel Porter on 03-31-2025 ALP [Catalytic activity/Vol] 57 U/L 40-129 [facility] Serum or plasma calcium devan urement (mass/volume)Ordered By: Yandel Porter on 03-31-2025 Calcium [Mass/Vol] 9.8 mg/dL Normal 7.6-11.0 [facility] Comment on above: Performed By: #### L 506.1001, L501.9940, L501.9520, L500.4050, L100.0100 #### [facility] [address] [place], [place], [id number] Serum or plasma urea nitroge n measurement (mass/volume)Ordered By: Yandel Porter on 03-31-2025 Urea nitrogen [Mass/Vol] 29 mg/dL High 4-19 [facility] Comment on above: Performed By: #### L 506.1001, L501.9940, L501.9520, L500.4050, L100.0100 #### [facility] [address] [place], [place], [id number] Sodium levelOrdered By: Yandel Porter on 03-31-2025 Sodium [Moles/Vol] 142 mmol/L Normal 133-145 [facility] Comment on above: Performed By: #### L 506.1001, L501.9940, L501.9520, L500.4050, L100.0100 #### [facility] [address] [place], [address] TSH DL <= 0.005 mIU/L QnOrde red By: Yandel Porter on 03-31-2025 TSH Qn 0.797 uIU/mL 0.300-4.200 [facility] Thyroid Stim Hormone (TSH)on 03-31-2025 TSH 0.797 uIU/mL Normal 0.300-4.200 [facility] Comment on above: Performed By: #### L 506.1001, L501.9940, L501.9520, L500.4050, L100.0100 #### [facility] [address] [place], [address] Total proteinOrdered By: Yandel Porter on 03-31-2025 Protein [Mass/Vol] 7.4 g/dL 5.9-8.4 [facility] Vitamin D,25 Hydroxyon 03-31 Vitamin D 25-OH 34.7 ng/mL Normal 30-100 [facility] Comment on above: Result Comment: Dori min D Status Deficiency: <20 ng/mL (50nmol/L) Insufficiency: 20-30 ng/mL (50-75 nmol/L) Sufficiency: 30-100 ng/mL (75-250 nmol/L) Toxicity: >100 ng/mL (>250 nmol/L) Performed By: #### L 506.1001, L501.9940, L501.9520, L500.4050, L100.0100 #### [facility] [address] [facility] [place], [address] White blood cell (WBC) count Ordered By: Yandel Porter on 03-31-2025 WBC (Bld) [#/Vol] 7.5 10*3/uL Normal 4.4-11.0 [facility] Comment on above: Performed By: #### L 506.1001, L501.9940, L501.9520, L500.4050, L100.0100 #### [facility] [address] [place], [address] Magnetic resonance imaging r eportOrdered By: Diamond Sanchez on 03-11-2025 Study report [facility] Imaging Services [address] [place] [address] Spine Lumbar (Routine) MR#: [id number] Acct: [id number] Name: JOSE CASTRO Rep #: [id number] : 1955 M 69 From: Jesus Sanchez MD PCP: Dr. Yandel Porter MD Status: ARLETTE BRICENO Study:Spine Lumbar (Routine) Date of Exam: 03/09/25 Exam# [id number] Ordering Dr: Yandel Porter MD PROCEDURE: SPINE LUMBAR (ROUTINE) 03/09/2025 REASON FOR EXAM: SPINAL STENOSIS TECHNIQUE: SPINE LUMBAR (ROUTINE) COMPARISON: X-ray lumbar spine March 04, 2025. FINDINGS: Vertebrae: Preserved in height and signal. Alignment: Normal alignment. Conus Medullaris: Unremarkable. L1-2: No foraminal or canal stenosis. L2-3: No foraminal or canal stenosis. L3-4: No foraminal or canal stenosis. L4-5: Disc bulge. Facet joint arthropathy with fluid effusion. Mild inferior bilateral foramina stenosis. No canal stenosis. L5-S1: Disc desiccation. Disc bulge. Facet joint arthropathy. Mild bilateral foramina stenosis. No canal stenosis. Sacrum: Unremarkable. MRI/Spine Lumbar (Routine) IMPRESSION: L4-L5, facet joint arthropathy with fluid effusion sigmoid bilateral foramina stenosis. No canal stenosis. L5-S1, mild bilateral foramina stenosis from facet joint arthropathy and disc bulge. Reading Location: [facility] CC: Dr. Yandel Porter MD ~ Mail Processing Associate: Signed [facility] Spine Lumbar (Routine)on Spine Lumbar (Routine) [facility] Imaging Services [address] [place], [place] [address] Spine Lumbar (Routine) MR#: [id number] Acct: [id number] Name: JOSE CASTRO Rep #: [id number] : 1955 M 69 From: Diamond Sanchez MD PCP: Dr. Yandel Porter MD Status: REG CLI Study: Spine Lumbar (Routine) Date of Exam: 03/09/25 Exam# [id number] Ordering Dr: Yandel Porter MD PROCEDURE: SPINE LUMBAR (ROUTINE) 03/09/2025 REASON FOR EXAM: SPINAL STENOSIS TECHNIQUE: SPINE LUMBAR (ROUTINE) COMPARISON: X-ray lumbar spine March 04, 2025. FINDINGS: Vertebrae: Preserved in height and signal. Alignment: Normal alignment. Conus Medullaris: Unremarkable. L1-2: No foraminal or canal stenosis. L2-3: No foraminal or canal stenosis. L3-4: No foraminal or canal stenosis. L4-5: Disc bulge. Facet joint arthropathy with fluid effusion. Mild inferior bilateral foramina stenosis. No canal stenosis. L5-S1: Disc desiccation. Disc bulge. Facet joint arthropathy. Mild bilateral foramina stenosis. No canal stenosis. Sacrum: Unremarkable. MRI/Spine Lumbar (Routine) IMPRESSION: L4-L5, facet joint arthropathy with fluid effusion sigmoid bilateral foramina stenosis. No canal stenosis. L5-S1, mild bilateral foramina stenosis from facet joint arthropathy and disc bulge. Reading Location: [facility] CC: Dr. Yandel Porter MD Mail Processing Associate: Signed Normal [facility] L/S Spine Min 4 Views L/S Spine Min 4 Views [facility] Imaging Services [address] [place] [address] L/S Spine Min 4 Views MR#: [id number] Acct: [id number] Name: JOSE CASTRO Rep #: [id number] : 1955 M 69 From: Abdirahman Galo MD PCP: Dr. Yandel Porter MD Status: REG CLI Study: L/S Spine Min 4 Views Date of Exam: 03/04/25 Exam# [id number] Ordering Dr: Yandel Porter MD EXAM: XR Lumbosacral Spine Flexion/Extension Only, 2 or 3 Views CLINICAL INDICATION: LOPW BACK PAIN TECHNIQUE: Lateral flexion/extension views of the lumbar spine and sacrum. COMPARISON: No relevant prior studies available. FINDINGS: VERTEBRAE: Mild endplate degenerative changes and disc degeneration of L4-S1. No acute fracture. Normal sagittal alignment. No instability. SACRUM/COCCYX: Unremarkable as visualized. No acute fracture. DISC SPACES: No acute findings. No significant narrowing. SOFT TISSUES: Unremarkable. RAD/L/S Spine Min 4 Views IMPRESSION: Degenerative changes as above. Reading Location: [facility] CC: Dr. Yandel Porter MD Mail Processing Associate: Signed Normal [facility] Comprehensive Metabolic Prof ilon 09-28-2024 Albumin [Mass/Vol] 3.8 g/dL Normal 3.2-5.0 [facility] Comment on above: Performed By: #### L 506.1000, L100.0100, L501.9520, L500.4050 #### [facility] [address] [place], [address] Albumin/Globulin [Mass ratio] 1.1 {ratio} Normal 0.9-2.4 [facility] Comment on above: Performed By: #### L 506.1000, L100.0100, L501.9520, L500.4050 #### [facility] [address] [place], [address] ALK P 62 U/L Normal 45-117 [facility] Comment on above: Performed By: #### L 506.1000, L100.0100, L501.9520, L500.4050 #### [facility] [address] [place], [address] ALT [Catalytic activity/Vol] 36 U/L Normal 16-61 [facility] Comment on above: Performed By: #### L 506.1000, L100.0100, L501.9520, L500.4050 #### [facility] [address] [place], [address] AST [Catalytic activity/Vol] 28 U/L Normal 15-37 [facility] Comment on above: Performed By: #### L 506.1000, L100.0100, L501.9520, L500.4050 #### [facility] [address] [place], [address] Bilirubin [Mass/Vol] 1.10 mg/dL High 0.20-1.00 [facility] Comment on above: Result Comment: For patients on eltrombopag therapy, use of Dimension Driscoll TBIL is not recommended. Performed By: #### L 506.1000, L100.0100, L501.9520, L500.4050 #### [facility] [address] [place], [address] BUN/CRE 13.6 RATIO Normal 10-20 [facility] Comment on above: Performed By: #### L 506.1000, L100.0100, L501.9520, L500.4050 #### [facility] [address] [place], [address] CA,Total 9.0 mg/dL Normal 8.5-10.1 [facility] Comment on above: Performed By: #### L 506.1000, L100.0100, L501.9520, L500.4050 #### [facility] [address] [place], [address] Chloride [Moles/Vol] 107 mmol/L Normal 98-107 [facility] Comment on above: Performed By: #### L 506.1000, L100.0100, L501.9520, L500.4050 #### [facility] [address] [place], [address] CO2 [Moles/Vol] 30.0 mmol/L Normal 21.0-32.0 [facility] Comment on above: Performed By: #### L 506.1000, L100.0100, L501.9520, L500.4050 #### [facility] [address] [place], [address] Creatinine [Mass/Vol] 1.18 mg/dL Normal 0.70-1.30 [facility] Comment on above: Result Comment: The validity of the calculated GFR GFRAA in patients over 70 years has not been determined. Clinical correlation is essential. Performed By: #### L 506.1000, L100.0100, L501.9520, L500.4050 #### [facility] [address] [place], [address] EST GFR - AA 79 mL/min Normal >60 [facility] Comment on above: Result Comment: Afri can Gabonese GFR Calc Performed By: #### L 506.1000, L100.0100, L501.9520, L500.4050 #### [facility] [address] [place], [address] GAP 4 Low 5-15 [facility] Comment on above: Performed By: #### L 506.1000, L100.0100, L501.9520, L500.4050 #### [facility] [address] [place], [address] GFR/1.73 sq M.predicted among non-blacks MDRD (S/P/Bld) [Vol rate/Area] 65 mL/min/{1.73_m2} Normal >60 [facility] Comment on above: Result Comment: Non- GFR Calc Performed By: #### L 506.1000, L100.0100, L501.9520, L500.4050 #### [facility] [address] [place], [address] Globulin (S) [Mass/Vol] 3.5 g/dL Normal 2.2-4.2 [facility] Comment on above: Performed By: #### L 506.1000, L100.0100, L501.9520, L500.4050 #### [facility] [address] [place], [address] Glucose [Mass/Vol] 99 mg/dL Normal 74-106 [facility] Comment on above: Performed By: #### L 506.1000, L100.0100, L501.9520, L500.4050 #### [facility] [address] [place], [address] Potassium [Moles/Vol] 4.1 mmol/L Normal 3.5-5.1 [facility] Comment on above: Performed By: #### L 506.1000, L100.0100, L501.9520, L500.4050 #### [facility] [address] [place], [address] Sodium [Moles/Vol] 141 mmol/L Normal 136-145 [facility] Comment on above: Performed By: #### L 506.1000, L100.0100, L501.9520, L500.4050 #### [facility] [address] [place], [address] T PROT 7.3 g/dL Normal 6.4-8.2 [facility] Comment on above: Performed By: #### L 506.1000, L100.0100, L501.9520, L500.4050 #### [facility] [address] [place], [address] Urea nitrogen [Mass/Vol] 16 mg/dL Normal 7-18 [facility] Comment on above: Performed By: #### L 506.1000, L100.0100, L501.9520, L500.4050 #### [facility] [address] [place], [address] Thyroid Stim Hormone (TSH)on 09-28-2024 TSH 1.050 uIU/mL Normal 0.358-3.740 [facility] Comment on above: Performed By: #### L 506.1000, L100.0100, L501.9520, L500.4050 #### [facility] [address] [place], [address] CBC W/Diff, Automatedon 02-2 Absolute Lymph 2.93 X10 3/uL Normal 0.83-4.51 [facility] Comment on above: Performed By: #### L 506.1000, L100.0100, L501.9520, L500.4050 #### [facility] [address] [place], [address] Absolute Neut 4.0 X10 3/uL Normal 2.0-7.7 [facility] Comment on above: Performed By: #### L 506.1000, L100.0100, L501.9520, L500.4050 #### [facility] [address] [place], [address] Basophils/100 WBC (Bld) 0.7 % Normal 0-1 [facility] Comment on above: Performed By: #### L 506.1000, L100.0100, L501.9520, L500.4050 #### [facility] [address] [place], [address] Eosinophils/100 WBC (Bld) 3.2 % Normal 0-5 [facility] Comment on above: Performed By: #### L 506.1000, L100.0100, L501.9520, L500.4050 #### [facility] [address] [place], [address] Erythrocyte distribution width (RBC) [Ratio] 12.8 % Normal 11.6-14.6 [facility] Comment on above: Performed By: #### L 506.1000, L100.0100, L501.9520, L500.4050 #### [facility] [address] [place], [address] Hematocrit (Bld) [Volume fraction] 49.5 % Normal 40-54 [facility] Comment on above: Performed By: #### L 506.1000, L100.0100, L501.9520, L500.4050 #### [facility] [address] [place], [address] Hemoglobin (Bld) [Mass/Vol] 16.6 g/dL High 13.0-16.5 [facility] Comment on above: Performed By: #### L 506.1000, L100.0100, L501.9520, L500.4050 #### [facility] [address] [place], [address] IG% 0.400 Normal 0.0-0.9 [facility] Comment on above: Result Comment: IG% - Immature Granulocytes (promyelocytes, myelocytes and metamyelocytes) > 1% indicates that a LEFT SHIFT is Present. Performed By: #### L 506.1000, L100.0100, L501.9520, L500.4050 #### [facility] [address] [place], [address] Lymphocytes/100 WBC (Bld) 35.7 % Normal 19-41 [facility] Comment on above: Performed By: #### L 506.1000, L100.0100, L501.9520, L500.4050 #### [facility] [address] [place], [address] MCH (RBC) [Entitic mass] 31.6 pg Normal 27.0-32.0 [facility] Comment on above: Performed By: #### L 506.1000, L100.0100, L501.9520, L500.4050 #### [facility] [address] [place], [address] MCHC (RBC) [Mass/Vol] 33.5 g/dL Normal 32-36 [facility] Comment on above: Performed By: #### L 506.1000, L100.0100, L501.9520, L500.4050 #### [facility] [address] [place], [address] MCV (RBC) [Entitic vol] 94.3 fL High 80-94 [facility] Comment on above: Performed By: #### L 506.1000, L100.0100, L501.9520, L500.4050 #### [facility] [address] [place], [address] Monocytes/100 WBC (Bld) 11.3 % High 0-10 [facility] Comment on above: Performed By: #### L 506.1000, L100.0100, L501.9520, L500.4050 #### [facility] [address] [place], [address] Neutrophils/100 WBC (Bld) 48.7 % Normal 47-70 [facility] Comment on above: Performed By: #### L 506.1000, L100.0100, L501.9520, L500.4050 #### [facility] [address] [place], [address] Nucleated RBC (Bld) [#/Vol] 0 10*3/uL Normal 0-5 [facility] Comment on above: Performed By: #### L 506.1000, L100.0100, L501.9520, L500.4050 #### [facility] [address] [place], [address] Platelet mean volume (Bld) [Entitic vol] 10.4 fL Normal 6.2-12.0 [facility] Comment on above: Performed By: #### L 506.1000, L100.0100, L501.9520, L500.4050 #### [facility] [address] [place], [address] Platelets (Bld) [#/Vol] 176 10*3/uL Normal 150-450 [facility] Comment on above: Performed By: #### L 506.1000, L100.0100, L501.9520, L500.4050 #### [facility] [address] [place], [address] RBC (Bld) [#/Vol] 5.25 10*6/uL Normal 4.6-6.2 [facility] Comment on above: Performed By: #### L 506.1000, L100.0100, L501.9520, L500.4050 #### [facility] [address] [place], [address] RDW SD 43.9 fl Normal 35.1-43.9 [facility] Comment on above: Performed By: #### L 506.1000, L100.0100, L501.9520, L500.4050 #### [facility] [address] [place], [address] WBC (Bld) [#/Vol] 8.2 10*3/uL Normal 4.4-11.0 [facility] Comment on above: Performed By: #### L 506.1000, L100.0100, L501.9520, L500.4050 #### [facility] [address] [place], [address] HIP, UNI W/ Pelvis 2-3 Views on 09-27-2024 HIP, UNI W/ Pelvis 2-3 Views [facility] Imaging Services [address] [place] [address] HIP, UNI W/ Pelvis 2-3 Views MR#: [id number] Acct: [id number] Name: JOSE CASTRO Rep #: [id number] : 1955 M 68 From: Abdirahman Galo MD PCP: Dr. Yandel Porter MD Status: REG CLI Study: HIP, UNI W/ Pelvis 2-3 Views Date of Exam: Exam# [id number] Ordering Dr: Yandel Porter MD EXAM: XR Right Hip With Pelvis When Performed, 2 or 3 Views CLINICAL INDICATION: TECHNIQUE: Two or three views of the right hip with pelvis when performed. COMPARISON: No relevant prior studies available. FINDINGS: BONES/JOINTS: Mild degenerative change of the right hip joint. No acute fracture. No dislocation. SOFT TISSUES: Unremarkable. RAD/HIP, UNI W/ Pelvis 2-3 Views IMPRESSION: Degenerative changes as above. Reading Location: [facility] CC: Dr. Yandel Porter MD Mail Processing Associate: Signed Normal [facility] Vitamin D,25 Hydroxyon 09-27 Vitamin D 25-OH 28.9 ng/mL Normal [facility] Comment on above: Result Comment: Dori min D 25(OH) Status Range Deficiency <20 ng/mL (50nmol/L) Insufficiency 20 - 30 ng/mL (50 - 75 nmol/L) Sufficiency 30 - 100 ng/mL (75 - 250 nmol/L) Toxicity >100 ng/mL (>250 nmol/L) Performed By: #### L 506.1000, L100.0100, L501.9520, L500.4050 #### [facility] [address] [place], [address] Basophil percentageOrdered B y: Aletheaakila Deluna on 11-24-2023 Basophil percentage 4.27 ng/mL 0.0-4.0 [facility] Comment on above: This test was perfor med using the TPSA assay method for the[facility]. Values obtained with differentassay methods cannot be used interchangably.When changing PSA assays in the course of monitoring apatient, additional sequential testing should be carriedout to confirm baseline values. Absolute lymphocyte countOrd ered By: Yandel Porter on 09-25-2023 Lymphocytes Auto (Unsp spec) [#/Vol] 2.80 10*3/uL 0.83-4.51 [facility] Automated lymphocyte count a s percentage of total leukocytesOrdered By: Yandel Porter on 09-25-2023 Lymphocytes/100 WBC Auto (Unsp spec) 36.0 % 19-41 [facility] Basophil percentageOrdered B y: Yandel Porter on 09-25-2023 Basophils/100 WBC (Bld) 0.4 % 0-1 [facility] Bilirubin [Mass/Vol] 1.10 mg/dL 0.20-1.00 [facility] Comment on above: For patients on eltr ombopag therapy, use of Dimension Driscoll TBIL is not recommended. Chloride [Moles/Vol] 109 mmol/L 98-107 [facility] Eosinophils/100 WBC (Bld) 2.8 % 0-5 [facility] Glucose [Mass/Vol] 107 mg/dL 74-106 [facility] Comment on above: Fasting Glucose resu lt from 100 to 125 mg/dL suggests IMPAIRED HOMEOSTASIS per A.D.A. criteria. Hemoglobin (Bld) [Mass/Vol] 17.1 g/dL 13.0-16.5 [facility] Monocytes/100 WBC (Bld) 11.5 % 0-10 [facility] Neutrophils (Bld) [#/Vol] 3.8 10*3/uL 2.0-7.7 [facility] Neutrophils/100 WBC (Bld) 49.2 % 47-70 [facility] Potassium [Moles/Vol] 3.9 mmol/L 3.5-5.1 [facility] Protein [Mass/Vol] 7.3 g/dL 6.4-8.2 [facility] Sodium [Moles/Vol] 139 mmol/L 136-145 [facility] WBC (Bld) [#/Vol] 7.8 10*3/uL 4.4-11.0 [facility] Determination of erythrocyte mean corpuscular volume (MCV)Ordered By: Yandel Porter on 09-25-2023 MCV (RBC) [Entitic vol] 91.6 fL 80-94 [facility] Erythrocyte distribution wid th ratioOrdered By: [facility] 09-[facility]-20[facility] Erythrocyte distribution width (RBC) [Ratio] 12.3 % 11.6-14.6 [facility] Erythrocyte distribution wid th standard deviationOrdered By: Yandel Porter 09-25-2023 Erythrocyte distribution width (RBC) [Entitic vol] 41.8 fL 35.1-43.9 [facility] Hematocrit Auto (Bld) [Volum e fraction]Ordered By: [facility] 09-25-2023 Hematocrit (Bld) [Volume fraction] 51.2 % 40-54 [facility] Immature granulocytes/100 WB C Auto (Bld)Ordered By: Yandel Porter on 09-25-2023 Immature granulocytes/100 WBC (Bld) 0.100 % 0.0-0.9 [facility] Comment on above: IG% - Immature Granu locytes (promyelocytes, myelocytes and metamyelocytes) > 1% indicates that a LEFT SHIFT is Present. Laboratory - Chemistry and C hemistry - challengeOrdered By: Yandel Porter on 09-25-2023 Albumin/Globulin [Mass ratio] 1.0 {ratio} 0.9-2.4 [facility] ALP [Catalytic activity/Vol] 67 U/L 45-117 [facility] ALT [Catalytic activity/Vol] 39 U/L 16-61 [facility] CO2 [Moles/Vol] 29.0 mmol/L 21.0-32.0 [facility] Globulin (S) [Mass/Vol] 3.7 g/dL 2.2-4.2 [facility] Urea nitrogen/Creatinine [Mass ratio] 16.4 mg/mg 10-20 [facility] Laboratory - Hematology and Cell countsOrdered By: Yandel Porter on 09-25-2023 MCH (RBC) [Entitic mass] 30.6 pg 27.0-32.0 [facility] MCHC (RBC) [Mass/Vol] 33.4 g/dL 32-36 [facility] Nucleated RBC/100 WBC (Bld) [Ratio] 0 % 0-5 [facility] Platelet mean volume (Bld) [Entitic vol] 10.5 fL 6.2-12.0 [facility] Platelets (Bld) [#/Vol] 199 10*3/uL 150-450 [facility] No Panel InformationOrdered By: Yandel Porter on 09-25-2023 Estimated GFR (MDRD) Amer 68 mL/min >60 [facility] Comment on above: GFR Calc Estimated GFR (MDRD) Non-Af Amer 57 mL/min >60 [facility] Comment on above: Non- GFR Calc Vitamin D 25-Hydroxy 31.3 ng/mL [facility] Comment on above: Vitamin D 25(OH) Sta tus Range Deficiency <20 ng/mL (50nmol/L) Insufficiency 20 - 30 ng/mL (50 - 75 nmol/L) Sufficiency 30 - 100 ng/mL (75 - 250 nmol/L) Toxicity >100 ng/mL (>250 nmol/L) RBC Auto (Bld) [#/Vol]Ordere d By: Yandel Porter on 09-25-2023 RBC (Bld) [#/Vol] 5.59 10*6/uL 4.6-6.2 [facility] Serum or plasma calcium devan urement (mass/volume)Ordered By: Yandel Porter on 09-25-2023 Calcium [Mass/Vol] 9.1 mg/dL 8.5-10.1 [facility] Serum or plasma creatinine m easurement (mass/volume)Ordered By: Yandel Porter on 09-25-2023 Creatinine [Mass/Vol] 1.34 mg/dL 0.70-1.30 [facility] Comment on above: The validity of the calculated GFR & GFRAA in patients over 70 years has not been determined. Clinical correlation is essential. Serum or plasma thyroid stim ulating hormone (TSH) measurement (units/volume)Ordered By: Yandel Porter on 09-25-2023 TSH Qn 1.25 uIU/mL 0.358-3.74 [facility] Serum or plasma urea nitroge n measurement (mass/volume)Ordered By: Yandel Porter on 09-25-2023 Urea nitrogen [Mass/Vol] 22 mg/dL 7-18 [facility] Thin prep Papanicolaou smear with manual screeningOrdered By: Yandel Porter on 09-25-2023 Thin prep Papanicolaou smear with manual screening 3.6 g/dL 3.2-5.0 [facility] Thin prep Papanicolaou smear with manual screening 26 U/L 15-37 [facility] Thin prep Papanicolaou smear with manual screening 1 5-15 [facility] No Panel InformationOrdered By: Dmitry Meza on 05-29-2023 Prostate Specific Antigen Total 3.82 ng/mL 0.0-4.0 [facility] Comment on above: This test was perfor med using the TPSA assay method for the[employer] chemistry system. Values obtained with differentassay methods cannot be used interchangably.When changing PSA assays in the course of monitoring apatient, additional sequential testing should be carriedout to confirm baseline values. Absolute lymphocyte countOrd ered By: Yandel Porter on 03-27-2023 Lymphocytes Auto (Unsp spec) [#/Vol] 2.59 10*3/uL 0.83-4.51 [facility] Basophil percentageOrdered B y: Yandel Porter on 03-27-2023 Basophils/100 WBC (Bld) 0.7 % 0-1 [facility] Bilirubin [Mass/Vol] 0.70 mg/dL 0.20-1.00 [facility] Comment on above: For patients on eltr ombopag therapy, use of Dimension Driscoll TBIL is not recommended. Chloride [Moles/Vol] 108 mmol/L 98-107 [facility] Eosinophils/100 WBC (Bld) 3.4 % 0-5 [facility] Glucose [Mass/Vol] 96 mg/dL 74-106 [facility] Neutrophils (Bld) [#/Vol] 3.4 10*3/uL 2.0-7.7 [facility] Neutrophils/100 WBC (Bld) 47.4 % 47-70 [facility] Potassium [Moles/Vol] 4.1 mmol/L 3.5-5.1 [facility] Protein [Mass/Vol] 7.2 g/dL 6.4-8.2 [facility] Sodium [Moles/Vol] 141 mmol/L 136-145 [facility] WBC (Bld) [#/Vol] 7.1 10*3/uL 4.4-11.0 [facility] Blood erythrocytes count (nu mber/volume)Ordered By: Yandel Porter on 03-27-2023 RBC (Bld) [#/Vol] 5.15 10*6/uL 4.6-6.2 [facility] Blood hemoglobin measurement (mass/volume)Ordered By: Yandel Porter on 03-27-2023 Hemoglobin (Bld) [Mass/Vol] 15.9 g/dL 13.0-16.5 [facility] Blood lymphocytes/100 leukoc ytesOrdered By: Yandel Porter on 03-27-2023 Lymphocytes/100 WBC (Bld) 36.5 % 19-41 [facility] Blood monocytes/100 leukocyt esOrdered By: Yandel Porter on 03-27-2023 Monocytes/100 WBC (Bld) 11.7 % 0-10 [facility] Blood platelet mean volumeOr dered By: Yandel Porter on 03-27-2023 Platelet mean volume (Bld) [Entitic vol] 10.6 fL 6.2-12.0 [facility] Determination of erythrocyte mean corpuscular volume (MCV)Ordered By: Yandel Porter on 03-27-2023 MCV (RBC) [Entitic vol] 94.4 fL 80-94 [facility] Hematocrit Auto (Bld) [Volum e fraction]Ordered By: Yandel Porter on 03-27-2023 Hematocrit (Bld) [Volume fraction] 48.6 % 40-54 [facility] Laboratory - Chemistry and C hemistry - challengeOrdered By: Yandel Porter on 03-27-2023 ALP [Catalytic activity/Vol] 67 U/L 45-117 [facility] ALT [Catalytic activity/Vol] 40 U/L 16-61 [facility] CO2 [Moles/Vol] 28.0 mmol/L 21.0-32.0 [facility] Globulin (S) [Mass/Vol] 3.6 g/dL 2.2-4.2 [facility] Urea nitrogen/Creatinine [Mass ratio] 17.2 mg/mg 10-20 [facility] Laboratory - Hematology and Cell countsOrdered By: Yandel Porter on 03-27-2023 Erythrocyte distribution width (RBC) [Entitic vol] 42.4 fL 35.1-43.9 [facility] Erythrocyte distribution width (RBC) [Ratio] 12.3 % 11.6-14.6 [facility] Immature granulocytes/100 WBC (Bld) 0.300 % 0.0-0.9 [facility] Comment on above: IG% - Immature Granu locytes (promyelocytes, myelocytes and metamyelocytes) > 1% indicates that a LEFT SHIFT is Present. MCH (RBC) [Entitic mass] 30.9 pg 27.0-32.0 [facility] Nucleated RBC/100 WBC (Bld) [Ratio] 0 % 0-5 [facility] MCHC Auto (RBC) [Mass/Vol]Or dered By: Yandel Porter on 03-27-2023 MCHC (RBC) [Mass/Vol] 32.7 g/dL 32-36 [facility] No Panel InformationOrdered By: Yandel Porter on 03-27-2023 Estimated GFR (MDRD) Amer 81 mL/min >60 [facility] Comment on above: GFR Calc Estimated GFR (MDRD) Non-Af Amer 67 mL/min >60 [facility] Comment on above: Non- GFR Calc Prostate Specific Antigen Screen 4.25 ng/mL 0.00-4.00 [facility] Comment on above: This test was perfor med using the TPSA assay method for the[employer] chemistry system. Values obtained with differentassay methods cannot be used interchangably.When changing PSA assays in the course of monitoring apatient, additional sequential testing should be carriedout to confirm baseline values. Thyroid Stimulating Hormone (TSH) 1.31 uIU/mL 0.358-3.74 [facility] Vitamin D 25-Hydroxy 35.4 ng/mL [facility] Comment on above: Vitamin D 25(OH) Sta tus Range Deficiency <20 ng/mL (50nmol/L) Insufficiency 20 - 30 ng/mL (50 - 75 nmol/L) Sufficiency 30 - 100 ng/mL (75 - 250 nmol/L) Toxicity >100 ng/mL (>250 nmol/L) Platelets bldOrdered By: Yandel Porter on 03-27-2023 Platelets (Bld) [#/Vol] 185 10*3/uL 150-450 [facility] Serum or plasma albumin devan urement (mass/volume)Ordered By: Yandel Porter 03-27-2023 Albumin [Mass/Vol] 3.6 g/dL 3.2-5.0 [facility] Serum or plasma albumin/glob ulin mass ratioOrdered By: Yandel Porter 03-27-2023 Albumin/Globulin [Mass ratio] 1.0 {ratio} 0.9-2.4 [facility] Serum or plasma calcium devan urement (mass/volume)Ordered By: Yandel Porter on 03-27-2023 Calcium [Mass/Vol] 8.8 mg/dL 8.5-10.1 [facility] Serum or plasma creatinine m easurement (mass/volume)Ordered By: Yandel Porter 03-27-2023 Creatinine [Mass/Vol] 1.16 mg/dL 0.70-1.30 [facility] Comment on above: The validity of the calculated GFR & GFRAA in patients over 70 years has not been determined. Clinical correlation is essential. Serum or plasma urea nitroge n measurement (mass/volume)Ordered By: Yandel Porter on 03-27-2023 Urea nitrogen [Mass/Vol] 20 mg/dL 7-18 [facility] Thin prep Papanicolaou smear with manual screeningOrdered By: Yandel Porter on 03-27-2023 Thin prep Papanicolaou smear with manual screening 25 U/L 15-37 [facility] Thin prep Papanicolaou smear with manual screening 5 5-15 [facility] No Panel InformationOrdered By: Dr. Meza on 11-27-2022 Prostate Specific Antigen Total 3.76 ng/mL 0.0-4.0 [facility] Comment on above: This test was perfor med using the TPSA assay method for [employer] chemistry system. Values obtained with differentassay methods cannot be used interchangably.When changing PSA assays in the course of monitoring apatient, additional sequential testing should be carriedout to confirm baseline values. Absolute lymphocyte countOrd ered By: Dr. Porter on 09-23-2022 Lymphocytes Auto (Unsp spec) [#/Vol] 2.49 10*3/uL 0.83-4.51 [facility] Basophil percentageOrdered B y: Dr. Porter on 09-23-2022 Basophils/100 WBC (Bld) 0.8 % 0-1 [facility] Bilirubin [Mass/Vol] 0.80 mg/dL 0.20-1.00 [facility] Comment on above: For patients on eltr ombopag therapy, use of Dimension Driscoll TBIL is not recommended. Chloride [Moles/Vol] 108 mmol/L 98-107 [facility] Eosinophils/100 WBC (Bld) 5.8 % 0-5 [facility] Glucose [Mass/Vol] 90 mg/dL 74-106 [facility] Neutrophils (Bld) [#/Vol] 3.6 10*3/uL 2.0-7.7 [facility] Neutrophils/100 WBC (Bld) 48.5 % 47-70 [facility] Potassium [Moles/Vol] 3.9 mmol/L 3.5-5.1 [facility] Protein [Mass/Vol] 7.1 g/dL 6.4-8.2 [facility] Sodium [Moles/Vol] 144 mmol/L 136-145 [facility] Testosterone [Mass/Vol] 469.71 ng/dL [facility] Comment on above: CENTRAL 90% REFERENC E RANGES MALE AGE <50 197.44 - 669.58 ng/dL MALE AGE > or = 50 187.72 - 684.19 ng/dL FEMALE AGE <50 8.38 - 35.01 ng/dL FEMALE AGE > or = 50 <7.00 - 35.92 ng/dL Effective as of 02/27/21 WBC (Bld) [#/Vol] 7.5 10*3/uL 4.4-11.0 [facility] Blood erythrocytes count (nu mber/volume)Ordered By: Dr. Porter on 09-23-2022 RBC (Bld) [#/Vol] 5.09 10*6/uL 4.6-6.2 [facility] Blood hemoglobin measurement (mass/volume)Ordered By: Dr. Porter on 09-23-2022 Hemoglobin (Bld) [Mass/Vol] 15.9 g/dL 13.0-16.5 [facility] Blood lymphocytes/100 leukoc ytesOrdered By: Dr. Porter on 09-23-2022 Lymphocytes/100 WBC (Bld) 33.4 % 19-41 [facility] Blood monocytes/100 leukocyt esOrdered By: Dr. Porter on 09-23-2022 Monocytes/100 WBC (Bld) 11.4 % 0-10 [facility] Blood platelet mean volumeOr dered By: Dr. Porter on 09-23-2022 Platelet mean volume (Bld) [Entitic vol] 10.9 fL 6.2-12.0 [facility] Determination of erythrocyte mean corpuscular volume (MCV)Ordered By: Dr. Porter on 09-23-2022 MCV (RBC) [Entitic vol] 94.3 fL 80-94 [facility] Hematocrit Auto (Bld) [Volum e fraction]Ordered By: Dr. Porter on 09-23-2022 Hematocrit (Bld) [Volume fraction] 48.0 % 40-54 [facility] Laboratory - Chemistry and C hemistry - challengeOrdered By: Dr. Porter on 09-23-2022 ALP [Catalytic activity/Vol] 63 U/L 45-117 [facility] ALT [Catalytic activity/Vol] 35 U/L 16-61 [facility] CO2 [Moles/Vol] 29.0 mmol/L 21.0-32.0 [facility] Globulin (S) [Mass/Vol] 3.5 g/dL 2.2-4.2 [facility] Urea nitrogen/Creatinine [Mass ratio] 16.2 mg/mg 10-20 [facility] Laboratory - Hematology and Cell countsOrdered By: Dr. Porter on 09-23-2022 Erythrocyte distribution width (RBC) [Entitic vol] 43.3 fL 35.1-43.9 [facility] Erythrocyte distribution width (RBC) [Ratio] 12.4 % 11.6-14.6 [facility] Immature granulocytes/100 WBC (Bld) 0.100 % 0.0-0.9 [facility] Comment on above: IG% - Immature Granu locytes (promyelocytes, myelocytes and metamyelocytes) > 1% indicates that a LEFT SHIFT is Present. MCH (RBC) [Entitic mass] 31.2 pg 27.0-32.0 [facility] Nucleated RBC/100 WBC (Bld) [Ratio] 0 % 0-5 [facility] MCHC Auto (RBC) [Mass/Vol]Or dered By: Dr. Porter on 09-23-2022 MCHC (RBC) [Mass/Vol] 33.1 g/dL 32-36 [facility] No Panel InformationOrdered By: Dr. Porter on 09-23-2022 Estimated GFR (MDRD) Amer 85 mL/min >60 [facility] Comment on above: GFR Calc Estimated GFR (MDRD) Non-Af Amer 71 mL/min >60 [facility] Comment on above: Non- GFR Calc Thyroid Stimulating Hormone (TSH) 1.45 uIU/mL 0.358-3.74 [facility] Vitamin D 25-Hydroxy 24.6 ng/mL [facility] Comment on above: Vitamin D 25(OH) Sta tus Range Deficiency <20 ng/mL (50nmol/L) Insufficiency 20 - 30 ng/mL (50 - 75 nmol/L) Sufficiency 30 - 100 ng/mL (75 - 250 nmol/L) Toxicity >100 ng/mL (>250 nmol/L) Platelets bldOrdered By: Dr. Porter on 09-23-2022 Platelets (Bld) [#/Vol] 175 10*3/uL 150-450 [facility] Serum or plasma albumin devan urement (mass/volume)Ordered By: Dr. Porter on 09-23-2022 Albumin [Mass/Vol] 3.6 g/dL 3.2-5.0 [facility] Serum or plasma albumin/glob ulin mass ratioOrdered By: Dr. Porter on 09-23-2022 Albumin/Globulin [Mass ratio] 1.0 {ratio} 0.9-2.4 [facility] Serum or plasma calcium devan urement (mass/volume)Ordered By: Dr. Porter on 09-23-2022 Calcium [Mass/Vol] 8.9 mg/dL 8.5-10.1 [facility] Serum or plasma creatinine m easurement (mass/volume)Ordered By: Dr. Porter on 09-23-2022 Creatinine [Mass/Vol] 1.11 mg/dL 0.70-1.30 [facility] Comment on above: The validity of the calculated GFR & GFRAA in patients over 70 years has not been determined. Clinical correlation is essential. Serum or plasma urea nitroge n measurement (mass/volume)Ordered By: Dr. Porter on 09-23-2022 Urea nitrogen [Mass/Vol] 18 mg/dL 7-18 [facility] Thin prep Papanicolaou smear with manual screeningOrdered By: Dr. Porter on 09-23-2022 Thin prep Papanicolaou smear with manual screening 23 U/L 15-37 [facility] Thin prep Papanicolaou smear with manual screening 7 5-15 [facility] Absolute lymphocyte counton 03-25-2022 Lymphocytes Auto (Unsp spec) [#/Vol] 2.45 10*3/uL 0.83-4.51 [facility] Work Phone: Basophil percentageon 2021 Basophils/100 WBC (Bld) 0.7 % 0-1 [facility] Work Phone: Bilirubin [Mass/Vol] 0.90 mg/dL 0.20-1.00 [facility] Work Phone: Comment on above: For patients on eltr ombopag therapy, use of Dimension [place]iscoll TBIL is not recommended. Chloride [Moles/Vol] 107 mmol/L 98-107 [facility] Work Phone: Eosinophils/100 WBC (Bld) 7.1 % 0-5 [facility] Work Phone: Glucose [Mass/Vol] 90 mg/dL 74-106 [facility] Work Phone: Neutrophils (Bld) [#/Vol] 4.3 10*3/uL 2.0-7.7 [facility] Work Phone: Neutrophils/100 WBC (Bld) 51.7 % 47-70 [facility] Work Phone: Potassium [Moles/Vol] 3.8 mmol/L 3.5-5.1 [facility] Work Phone: Protein [Mass/Vol] 6.9 g/dL 6.4-8.2 [facility] Work Phone: Sodium [Moles/Vol] 141 mmol/L 136-145 [facility] Work Phone: Testosterone [Mass/Vol] 501.34 ng/dL [facility] Work Phone: Comment on above: CENTRAL 90% REFERENC E RANGES MALE AGE <50 197.44 - 669.58 ng/dL MALE AGE > or = 50 187.72 - 684.19 ng/dL FEMALE AGE <50 8.38 - 35.01 ng/dL FEMALE AGE > or = 50 <7.00 - 35.92 ng/dL Effective as of 02/27/21 WBC (Bld) [#/Vol] 8.4 10*3/uL 4.4-11.0 [facility] Work Phone: Blood erythrocytes count (nu mber/volume)on 03-25-2022 RBC (Bld) [#/Vol] 4.82 10*6/uL 4.6-6.2 [facility] Work Phone: Blood hemoglobin measurement (mass/volume)on 03-25-2022 Hemoglobin (Bld) [Mass/Vol] 15.4 g/dL 13.0-16.5 [facility] Work Phone: Blood lymphocytes/100 leukoc yteson 03-25-2022 Lymphocytes/100 WBC (Bld) 29.2 % 19-41 [facility] Work Phone: [phone] Blood monocytes/100 leukocyt eson 03-25-2022 Monocytes/100 WBC (Bld) 11.1 % 0-10 [facility] Work Phone: [phone] Blood platelet mean volumeon 03-25-2022 Platelet mean volume (Bld) [Entitic vol] 10.3 fL 6.2-12.0 [facility] Work Phone: Determination of erythrocyte mean corpuscular volume (MCV)on 03-25-2022 MCV (RBC) [Entitic vol] 94.8 fL 80-94 [facility] Work Phone: [phone] Hematocrit Auto (Bld) [Volum e fraction]on 03-25-2022 Hematocrit (Bld) [Volume fraction] 45.7 % 40-54 [facility] Work Phone: Laboratory - Chemistry and C hemistry - challengeon 03-25-2022 ALP [Catalytic activity/Vol] 70 U/L 45-117 [facility] Work Phone: [phone] ALT [Catalytic activity/Vol] 37 U/L 16-61 [facility] Work Phone: [phone] CO2 [Moles/Vol] 28.0 mmol/L 21.0-32.0 [facility] Work Phone: Globulin (S) [Mass/Vol] 3.4 g/dL 2.2-4.2 [facility] Work Phone: [phone] Urea nitrogen/Creatinine [Mass ratio] 13.2 mg/mg 10-20 [facility] Work Phone: Laboratory - Hematology and Cell countson 03-25-2022 Erythrocyte distribution width (RBC) [Entitic vol] 44.7 fL 35.1-43.9 [facility] Work Phone: [phone] Erythrocyte distribution width (RBC) [Ratio] 12.8 % 11.6-14.6 [facility] Work Phone: [phone] Immature granulocytes/100 WBC (Bld) 0.200 % 0.0-0.9 [facility] Work Phone: [phone] Comment on above: IG% - Immature Granu locytes (promyelocytes, myelocytes and metamyelocytes) > 1% indicates that a LEFT SHIFT is Present. MCH (RBC) [Entitic mass] 32.0 pg 27.0-32.0 [facility] Work Phone: [phone] Nucleated RBC/100 WBC (Bld) [Ratio] 0 % 0-5 [facility] Work Phone: [phone] MCHC Auto (RBC) [Mass/Vol]on 03-25-2022 MCHC (RBC) [Mass/Vol] 33.7 g/dL 32-36 [facility] Work Phone: [phone] Panel Informationon 03-25 Estimated GFR (MDRD) Amer 83 mL/min >60 [facility] Work Phone: [phone] Comment on above: GFR Calc Estimated GFR (MDRD) Non-Af Amer 69 mL/min >60 [facility] Work Phone: [phone] Comment on above: Non- GFR Calc Prostate Specific Antigen Screen 4.29 ng/mL 0.00-4.00 [facility] Work Phone: [phone] Comment on above: This test was perfor med using the TPSA assay method for the[employer] chemistry system. Values obtained with differentassay methods cannot be used interchangably.When changing PSA assays in the course of monitoring apatient, additional sequential testing should be carriedout to confirm baseline values. Thyroid Stimulating Hormone (TSH) 1.22 uIU/mL 0.358-3.74 [facility] Work Phone: [phone] Vitamin D 25-Hydroxy 30.4 ng/mL [facility] Work Phone: Comment on above: Vitamin D 25(OH) Sta tus Range Deficiency <20 ng/mL (50nmol/L) Insufficiency 20 - 30 ng/mL (50 - 75 nmol/L) Sufficiency 30 - 100 ng/mL (75 - 250 nmol/L) Toxicity >100 ng/mL (>250 nmol/L) Platelets bldon 03-25-2022 Platelets (Bld) [#/Vol] 169 10*3/uL 150-450 [facility] Work Phone: Serum or plasma albumin devan urement (mass/volume)on 03-25-2022 Albumin [Mass/Vol] 3.5 g/dL 3.2-5.0 [facility] Work Phone: Serum or plasma albumin/glob ulin mass ratioon 03-25-2022 Albumin/Globulin [Mass ratio] 1.0 {ratio} 0.9-2.4 [facility] Work Phone: Serum or plasma calcium devan urement (mass/volume)on 03-25-2022 Calcium [Mass/Vol] 8.8 mg/dL 8.5-10.1 [facility] Work Phone: Serum or plasma creatinine m easurement (mass/volume)on 03-25-2022 Creatinine [Mass/Vol] 1.14 mg/dL 0.70-1.30 [facility] Work Phone: Comment on above: The validity of the calculated GFR & GFRAA in patients over 70 years has not been determined. Clinical correlation is essential. Serum or plasma urea nitroge n measurement (mass/volume)on 03-25-2022 Urea nitrogen [Mass/Vol] 15 mg/dL 7-18 [facility] Work Phone: [phone] Thin prep Papanicolaou smear with manual screeningon 03-25-2022 Thin prep Papanicolaou smear with manual screening 27 U/L 15-37 [facility] Work Phone: [phone] Thin prep Papanicolaou smear with manual screening 6 5-15 [facility] Work Phone: [phone] Panel Informationon 07-27 -2022 Prostate Specific Antigen Total 5.34 ng/mL 0.0-4.0 [facility] Work Phone: Comment on above: This test was perfor med using the TPSA assay method for the[employer] chemistry system. Values obtained with differentassay methods cannot be used interchangably.When changing PSA assays in the course of monitoring apatient, additional sequential testing should be carriedout to confirm baseline values. NURSING PROGon 06-09-2020 NURSING PROG HNO ID: [id number] Author: Jolanta (Rn) OFELIA Leonardo Service: Nursing Author Type: Registered Nurse Type: Nursing Progress Note Filed: 06/09/2020 9:21 AM Note Text: The Patient was taken into the procedure room. Informed consent was verified and all allergy's reviewed prior to the procedure. The manometry catheter was inserted into the RIGHT nares with out difficulty. This patient denied using any blood thinners and/or muscle relaxants. This patient states he had a broken nose at the age of 6 but no surgeries. This patient was instructed on the possibility of nasal congestion and minimal bleeding from his nose.Patient tolerated this procedure well and verbalized understanding. Normal [id number] -------- JOSE CASTRO ([id number]) 1955 Date Time Provider Department 05/23/20 VAL PANTOJA [id number] During your visit today, we recorded the following information about you: Kandi Falcon RN 05/23/2020 9:30 AM Signed I called patient yesterday and explained the manometry, including the prep and Covid testing. Patient agreed to be scheduled. Jose Mahsa Adriel has been scheduled for manometry Date: 06/09/20 Arrival Time: 0830 Surgery Time: 0900 Location: [facility] No clearance required. Scheduled with surgery center: Yes Patient notified of date, time and location: Yes Form faxed to surgery center: Epic Placed on computer schedule: Yes Written on calendar: Yes Surgery information booklet sent/given: Yes Pre testing details: Covid testing at [facility] 06/07/20 at 1045 Admission Type: outpatient Anesthesia: Local Written instructions and maps mailed to patient. Kandi Falcon Allergies As of Date: 05/23/2020 Noted Allergy Reaction PENICILLINS 05/22/2020 16 - Unknown Date Reviewed: 05/22/2020 Reviewed by: Kandi Falcon RN - Fully Assessed Reason for Visit: Future Appointment [256] Cmt: esophageal manometry 06/09/20 Prescriptions as of 05/23/2020 Sig: HYDROCHLOROTHIAZID E 12.5 MG T* Take 12.5 mg by mouth every m* PANTOPRAZOLE 40 MG TABLET,DEL* Take 40 mg by mouth daily bef* Problem List As Of Date: 05/23/2020 (None) Encounter Status:Closed by KANDI FALCON on 05/23/20 [facility] HOSPon 05-23-2020 HOSP Patient:Armaan Castro MRN: Height:6' 3(1.905 m) Weight:242 lb (109.77 kg) Outpatient Medications as of 06/09/20: hydroCHLOROthiazid e (HYDRODIURIL, ESIDRIX) 12.[address] (PROTONIX) 40 mg tablet Admission/Clinic Administered Medications as of 06/09/20: Patient has no admission medications. Problem List: No problem list on file for this patient. Allergies: Penicillins Date Verified: 06/09/20 Lab Values No results within the last 30 days for the following basenames: K,HCT Progress Notes (GENS AG ACC 492): Kandi Falcon RN 05/23/2020 9:30 AM Signed I called patient yesterday and explained the manometry, including the prep and Covid testing. Patient agreed to be scheduled. Jose Castro has been scheduled for manometry Date: 06/09/20 Arrival Time: 0830 Surgery Time: 0900 Location: [facility] No clearance required. Scheduled with surgery center: Yes Patient notified of date, time and location: Yes Form faxed to surgery center: Epic Placed on computer schedule: Yes Written on calendar: Yes Surgery information booklet sent/given: Yes Pre testing details: Covid testing at [facility] 06/07/20 at 1045 Admission Type: outpatient Anesthesia: Local Written instructions and maps mailed to patient. Kandi Falcon [facility] Office Visiton 04-14-2017 Documentation of current medications (procedure) Done Invalid Interpretation Code [facility] Work Phone: [phone] Fall risk assessment No Invalid Interpretation Code [facility] Work Phone: [phone] Protein mass conc Done [facility] Work Phone: [phone] Lab Report: Lipid Profileon 10-05-2016 Cholesterol in HDL mass conc 54 mg/dL Invalid Interpretation Code [facility] Work Phone: [phone] Cholesterol in LDL mass conc 73 mg/dL Invalid Interpretation Code 0-130 [facility] Work Phone: [phone] Cholesterol mass conc 141 mg/dL Invalid Interpretation Code 200 [facility] Work Phone: [phone] Lipoprotein.pre-beta mass conc 14 mg/dL Invalid Interpretation Code 5-40 [facility] Work Phone: [phone] Triglyceride mass conc 70 mg/dL Invalid Interpretation Code [facility] Work Phone: [phone] Lab Report: Liver Profileon 10-05-2016 Albumin mass conc 3.5 g/dL Invalid Interpretation Code 3.4-5.0 [facility] Work Phone: [phone] Alkaline phosphatase (ALP) 69 U/L Invalid Interpretation Code 45-117 [facility] Work Phone: [phone] ALP enzyme act/vol (Bld) 69 U/L 45-117 [facility] Work Phone: [phone] ALT enzyme act/vol 37 U/L Invalid Interpretation Code 12-78 [facility] Work Phone: [phone] AST enzyme act/vol 27 U/L Invalid Interpretation Code 15-37 [facility] Work Phone: [phone] Bilirubin mass conc 0.70 mg/dL Invalid Interpretation Code 0.20-1.00 [facility] Work Phone: [phone] Bilirubin.direct mass conc 0.15 mg/dL Invalid Interpretation Code 0.00-0.30 [facility] Work Phone: [phone] Globulin 3.4 g/dL Invalid Interpretation Code 2.3-3.5 [facility] Work Phone: [phone] Globulin mass conc (S) 3.4 g/dL 2.3-3.5 [facility] Work Phone: [phone] Protein mass conc 6.9 g/dL Invalid Interpretation Code 6.4-8.2 [facility] Work Phone: [phone] Office Visiton 10-03-2016 Dietary management education, guidance, and counseling (procedure) yes Invalid Interpretation Code [facility] Work Phone: [phone] Clinical Lists Update: 09-27-2016 Left ventricular Ejection fraction 65 % Invalid Interpretation Code [facility] Work Phone: [phone] External Other: Preferred Me thod of Contacton 10-02-2015 methcontact secmsg [facility] Work Phone: [phone] Patient's prefered method of contact secmsg Invalid Interpretation Code [facility] [facility] Work Phone: [phone] Office Visiton 10-02-2015 Tobacco smoking status NHIS Former smoker [facility] [employer] Work Phone: [phone] Tobacco use CPHS Former smoker Invalid Interpretation Code [facility] Work Phone: [phone] Office Visit: New Patient SV T on Sleep Studyon 08-22-2014 cardiac risk group B Invalid Interpretation Code [facility] [employer] Work Phone: [phone] General cardiovascular disease 10Y risk [#] [place] 4 % Invalid Interpretation Code [facility] Work Phone: [phone] Clinical Lists Update: Prelo 02-11-2014 Chloride molar conc 110 mmol/L Invalid Interpretation Code [facility] Work Phone: [phone] CO2 26 mmol/L Invalid Interpretation Code [facility] Work Phone: [phone] CO2 ppres (BldV) 26 mmol/L [facility] [employer] [facility] Work Phone: [phone] Creatinine mass conc 1.04 mg/dL Invalid Interpretation Code [facility] Work Phone: [phone] Glucose 89 mg/dL Invalid Interpretation Code [facility] Work Phone: [phone] Glucose mass conc 89 mg/dL [facility] Work Phone: [phone] Hematocrit (HCT) 44.0 % Invalid Interpretation Code [facility] Work Phone: [phone] Hematocrit Volume Fraction (Bld) 44.0 % [facility] Work Phone: [phone] Hemoglobin mass conc (Bld) 15.7 g/dL Invalid Interpretation Code [facility] Work Phone: [phone] Platelets 153 10*3/mm3 Invalid Interpretation Code [facility] Work Phone: [phone] Platelets #/vol (Bld) 153 10*3/mm3 [facility] Work Phone: [phone] Potassium molar conc 4.6 mmol/L Invalid Interpretation Code [facility] Work Phone: [phone] Sodium molar conc 144 mmol/L Invalid Interpretation Code [facility] Work Phone: [phone] Thyrotropin Qn 48 u[iU]/mL Invalid Interpretation Code [facility] Work Phone: [phone] Urea nitrogen mass conc 14.1 mg/dL Invalid Interpretation Code [facility] Work Phone: [phone] WBC #/vol (Bld) 6.5 10*3/uL [facility] Work Phone: [phone] WBC (Leukocytes) 6.5 10*3/uL Invalid Interpretation Code [facility] Work Phone: [phone] Vital Signs Date Time Vital Sign Value Performing Clinician Chester singh 04-14-2017 12:49-0400 BMI (Body Mass Index) 29.99 kg/m2 [facility] Work Phone: 04-14-2017 12:49-0400 BP Diastolic 80 mm[Hg] [facility] Work Phone: 04-14-2017 12:49-0400 BP Systolic 116 mm[Hg] [facility] Work Phone: 04-14-2017 12:49-0400 Height 190.5 cm [facility] Work Phone: 04-14-2017 12:49-0400 Pulse (Heart Rate) 68 /min [facility] Work Phone: 04-14-2017 12:49-0400 Respiratory Rate 18 /min [facility] Work Phone: 04-14-2017 12:49-0400 Weight 108.86 kg [facility] Work Phone: 09-26-2014 15:46-0500 BSA (Body Surface Area) 2.38 m2 [facility] Work Phone: Encounters Encounter Date Encounter Type Care Provider Facility Start: 06-02-2025 End: 06-02-2025 ambulatory Yandel Porter Facility:[facility] Start: 03-31-2025 End: 03-31-[address] Yandel Porter MD Work Phone: -Laboratory Phy [facility] Start: 03-31-2025 End: 03-31-[address] Yandel Porter MD -Laboratory Phy [facility] Start: 03-31-2025 End: 03-31-2025 ambulatory Yandel Porter Facility:[facility] Start: 03-09-2025 End: 03-09-[address] Yandel Porter MD Work Phone: -[facility] Start: 03-09-2025 End: 03-09-[address] Yandel Porter MD -[facility] Work Phone: Start: 03-09-2025 End: 04-26-2025 ambulatory YANDEL PORTER [facility] Start: 03-09-2025 End: 03-09-2025 ambulatory Yandel Porter Facility:[facility] Start: 03-04-2025 End: 03-04-[address] Yandel Porter MD Work Phone: -[facility] Start: 03-04-2025 End: 03-04-[address] Yandel Porter MD -Radiology [facility] Work Phone: Start: 03-04-2025 End: 03-04-20[facility] Start: 09-27-2024 End: 09-27-2024 ambulatory [facility] Facility:[facility] Start: 11-24-2023 End: 11-24-2023 ambulatory [facility] Work Phone: Start: 11-24-2023 End: 11-24-2023 Patient encounter procedure [facility]-Laboratory Work Phone: Start: 09-25-2023 End: 09-25-2023 ambulatory [facility] Work Phone: Start: 09-25-2023 End: 09-25-2023 Patient encounter procedure [facility]-Laboratory, Phy Office 3rd Flr Start: 05-29-2023 End: 05-29-2023 ambulatory [facility] Work Phone: Start: 05-29-2023 End: 05-29-2023 Patient encounter procedure [facility]-Laboratory Work Phone: Start: 03-27-2023 End: 03-27-2023 ambulatory [facility] Work Phone: Start: 03-27-2023 End: 03-27-2023 Patient encounter procedure [facility]-Laboratory, Phy Office 3rd Flr Start: 11-27-2022 End: 11-27-2022 ambulatory [facility] Work Phone: Start: 11-27-2022 End: 11-27-2022 Patient encounter procedure [facility]-Laboratory Start: 09-23-2022 End: 09-23-2022 Patient encounter procedure [facility]-Laboratory, Phy Office 3rd Flr Start: 03-25-2022 End: 03-25-2022 ambulatory [facility] Work Phone: Start: 03-25-2022 End: 03-25-2022 Patient encounter procedure [facility]-Laboratory, Phy Office 3rd Flr Start: 02-27-2022 End: 02-27-2022 Patient encounter procedure [facility]-Laboratory Start: 05-23-2020 End: 05-23-2020 Telephone encounter Val Pantoja Work Phone: [facility] Comment on above: Future Appointment ( esophageal manometry 06/09/20) Start: 05-22-2020 End: 05-22-2020 Orders Only Val Pantoja Work Phone: [facility] Comment on above: Esophageal dysphagia (Primary Dx) Procedures Date Procedure Procedure Detail Performing Clinician Start: 03-31-2025 Assay of prostate sp ecific antigen total Dr. Yandel Porter MD Work Phone: Comment on above: This test was perfor med using the [employer] tPSA method. Measured values of a patient sample can vary depending on the testing procedure used. PSA values determined on patient samples by different testing procedures cannot be used interchangeably. If there is a change in PSA assays while monitoring therapy, sequential testing should be performed to confirm baseline values. Start: 03-31-2025 Vitamin D, 25-hydrox y measurement Dr. Yandel Porter MD Work Phone: Comment on above: Vitamin D StatusDefi ciency: <20 ng/mL (50nmol/L)Insufficiency: 20-30 ng/mL (50-75 nmol/L)Sufficiency: 30-100 ng/mL (75-250 nmol/L)Toxicity: >100 ng/mL (>250 nmol/L) Start: 03-09-2025 MRI of lumbar spine Dr. Yandel Porter MD Work Phone: Start: 03-04-2025 X-ray of lumbosacral spine Dr. Yandel Porter MD Work Phone: Start: 10-03-2016 End: 10-03-2016 Dietary management education, [...] 10-02-2015 Follow Up Appt 1 year Jamari Hdialgo Work Phone: Start: 09-26-2014 End: 09-26-2014 JESSE Greer MD Work Phone: Start: 09-26-2014 End: 09-18-2015 Echocardiography Luciano Greer MD Work Phone: Start: 09-26-2014 End: 09-26-2014 Follow Up Appt 1 year Jamari Hidalgo Work Phone: Start: 08-22-2014 End: 08-22-2014 JESSE Greer MD Work Phone: Start: 08-22-2014 End: 08-29-2014 Echocardiography Luciano Gerer MD Work Phone: Start: 08-22-2014 End: 08-22-2014 Follow Up Appt 1 month Luciano Greer MD Work Phone: Start: 08-22-2014 End: 09-08-2014 Stress Echocardiogram (treadmill) Luciano Greer MD Work Phone: Plan of Treatment Date Care Activity Detail Author Start: 06-07-2020 End: 05-22-2021 PRE-PROCEDURE & PRE-OPERATIVE COVID PRE-PROCEDURE & PRE-OPERATIVE COVID Microbiology Routine Esophageal dysphagia Expected: 06/07/2020, Expires: 05/22/2021 [facility] Comment on above: Expected: 06/07/2020 , Expires: 05/22/2021 Start: 04-04-2020 Influenza vaccination INFLUENZA (#1) [facility] Start: 10-20-2017 End: 10-20-2017 Appointment Appointment [facility] Work Phone: Start: 10-06-2017 End: 10-16-2016 *Hepatic Function Panel *Hepatic Function Panel [facility] Work Phone: Start: 10-06-2017 End: 10-16-2016 Lipid panel [AGGREGATE] *Lipid Profile CC PCP [facility] Work Phone: Start: 04-14-2017 End: 04-14-2017 JESSE MOLINA [facility] Work Phone: Start: 04-14-2017 End: 04-14-2017 Follow Up Appt 6 months Follow Up Appt 6 months [facility] Work Phone: Start: 10-03-2016 End: 10-07-2016 *Hepatic Function Panel *Hepatic Function Panel [facility] Work Phone: Start: 10-03-2016 End: 10-03-2016 JESSE MOLINA [facility] Work Phone: Start: 10-03-2016 End: 10-03-2016 Echocardiography Echocardiogram (complete) [facility] Work Phone: Start: 10-03-2016 End: 10-03-2016 Follow Up Appt 6 months Follow Up Appt 6 months [facility] Work Phone: Start: 10-03-2016 End: 10-07-2016 Lipid panel [AGGREGATE] *Lipid Profile CC PCP [facility] Work Phone: Start: 10-03-2016 End: 10-03-2016 Stress Echocardiogram (treadmill) Stress Echocardiogram (treadmill) [facility] Work Phone: Start: 10-02-2015 End: 10-02-2015 JESSE MOLINA [facility] Work Phone: Start: 10-02-2015 End: 10-02-2015 Follow Up Appt 1 year Follow Up Appt 1 year [facility] Work Phone: Start: 09-26-2014 End: 09-26-2014 ALEJANDROMirtha JESSE [facility] Work Phone: Start: 09-26-2014 End: 08-20-2015 Echocardiography Echocardiogram (complete) [facility] Work Phone: Start: 09-26-2014 End: 09-26-2014 Follow Up Appt 1 year Follow Up Appt 1 year [facility] Work Phone: Start: 08-22-2014 End: 08-22-2014 ALEJANDROMirtha JESSE [facility] Work Phone: Start: 08-22-2014 End: 08-22-2014 Echocardiography Echocardiogram (complete) [facility] Work Phone: Start: 08-22-2014 End: 08-22-2014 Follow Up Appt 1 month Follow Up Appt 1 month [facility] Work Phone: Start: 08-22-2014 End: 08-22-2014 Stress Echocardiogram (treadmill) Stress Echocardiogram (treadmill) [facility] Work Phone: Start: 12-21-2011 PROSTATE CANCER SCRE ENING DISCUSSION PROSTATE CANCER SCREENING DISCUSSION [facility] Start: 2006 SHINGRIX VACCINE (1 of 2) VENEGAS GRIX VACCINE (1 of 2) [facility] Start: 2006 Tuberculosis screening COLOREC CRISTAL CANCER SCREENING,SEE MODIFIER [facility] Start: 2001 DIABETES SCREEN DIABETES SCREEN [facility] Start: 12-21-1991 LIPID SCREEN LIPID SCREEN [facility] Start: 12-21-1975 Urine microalbumin profile DTAP,TDAP ,TD (1 - Tdap) [facility] Start: 1974 HEPATITIS C SCREENING HEPATITIS C SC GAMAL [facility] Start: 1974 HIV SCREENING HIV SCREENING [facility] Patient Education [facility] Work Phone: [facility] Payers Date Payer Category Payer Medicare [id number] 2024 Medicare [id number] 2024 Self-pay [id number] 2016 Unknown [employer] PPO [id number] 2016-Present PPO [id number] 2015 Unknown [id number] 1955 Unknown [id number] Unknown [id number] Unknown [id number] Unknown [id number] Unknown [id number] Unknown [id number] Social History Date Type Detail Facility Start: 05-22-2020 End: 02-20-2021 Tobacco smoking status FLIS Unknown if ever smoked [facility] Sex Assigned At Not on file [facility] Start: 1955 Sex Assigned At Male [facility] Start: 02-20-2021 Tobacco smoking stat us FLIS Ex-smoker (finding) [facility] Radiology Diagnostic study note 03-05-2025 Note Date & Type Note Facility 03-05-2025 Radiology Diagnostic study note [facility] Imaging Services [address] [place] [address] L/S Spine Min 4 Views MR#: [id number] Acct: [id number] Name: JOSE CASTRO Rep #: [id number] : 1955 M 69 From: Marlee Galo MD PCP: Dr. Yandel Porter MD Status: ARLETTE BRICENO Study:L/S Spine Min 4 Views Date of Exam: 03/04/25 Exam# [id number] Ordering Dr: Yandel Porter MD EXAM: XR Lumbosacral Spine Flexion/Extension Only, 2 or 3 Views CLINICAL INDICATION: LOPW BACK PAIN TECHNIQUE: Lateral flexion/extension views of the lumbar spine and sacrum. COMPARISON: No relevant prior studies available. FINDINGS: VERTEBRAE: Mild endplate degenerative changes and disc degeneration of L4-S1. No acute fracture. Normal sagittal alignment. No instability. SACRUM/COCCYX: Unremarkable as visualized. No acute fracture. DISC SPACES: No acute findings. No significant narrowing. SOFT TISSUES: Unremarkable. RAD/L/S Spine Min 4 Views IMPRESSION: Degenerative changes as above. Reading Location: [id number] CC: Dr. Yandel Porter MD ~ Mail Processing Associate: Signed [facility] Evaluation note Note Date & Type Note Facility Evaluation note No assessment information availa [facility] Work Phone: Reason for referral (narrative) Note Date & Type Note Facility Reason for referral (narrative) No reason for referral information available [facility] Work Phone: Assessments Diagnosis Esophageal dysphagia- Primary Dysphagia, pharyngoesophageal phase Summary Purpose Family History No Family History Records Found Relationship Condition Age at Onset Recorded Date/T raegan father Diabetes mellitus Unknown Coronary artery disease Unknown Myocardial infarction Unknown mother Cerebrovascular accident (CVA) Unknown Malignant neoplasm of breast Unknown Advance Directives No Advanced Directives Records FoundNo Advanced Directives Records FoundNo Advanced Directives Records Found Chief Complaint and Reason for Visit Chief Complaint PSA Chief Complaint Admit Date LOW BACK PAIN March 04, 2025 11: 30am SPINAL STENOSIS March 09, 2025 3:2 3pm Additional Source Comments Source Comments (unrecognize d section and content) In the event this informatio n is protected by the Federal Confidentiality of Alcohol and Drug Abuse Patient Records regulations: The Federal rules restrict any use of the information to criminally investigate or prosecute any alcohol or drug abuse patient.[facility] event this information is protected by the Federal Confidentiality of Alcohol and Drug Abuse Patient Records regulations: The Federal rules restrict any use of the information to criminally investigate or prosecute any alcohol or drug abuse patient.[facility] the event this information is protected by the Federal Confidentiality of Alcohol and Drug Abuse Patient Records regulations: The Federal rules restrict any use of the information to criminally investigate or prosecute any alcohol or drug abuse patient.[facility] Reason for Visit (unrecogniz ed section and content) Reason Comments Future Appointment esophageal manometry 06/09/20 Telephone Encounter - Kandi Falcon RN - 05/23/2020 9:24 AM EDT Miscellaneous Notes (unrecog nized section and content) I called patient yesterday and explained the manometry, including the prep and Covid testing. Patient agreed to be scheduled. Jose Castro has been scheduled for manometry Date: 06/09/20 Arrival Time: 0830 Surgery Time: 0900 Location: [facility] No clearance required. Scheduled with surgery center: Yes Patient notified of date, time and location: Yes Form faxed to surgery center: Epic Placed on computer schedule: Yes Written on calendar: Yes Surgery information booklet sent/given: Yes Pre testing details: Covid testing at [facility] 06/07/20 at 1045 Admission Type: outpatient Anesthesia: Local Written instructions and maps mailed to patient. Kandi Falcon documented in this encounter (unrecognized sect ion and content) No Status Records FoundNo Status Records FoundNo Status Records Found INFORMATION SOURCE (unrecogn ized section and content) DATE CREATED AUTHOR 06/09/2020 [facility] DATE CREATED AUTHOR AUTHOR'S ORGANIZ ATION 04/27/2025 [facility] DATE CREATED AUTHOR AUTHOR'S ORGANIZ ATION 06/09/2025 [facility] Goals (unrecognized section and content) Goals may be documented in a n alternate sectionGoals may be documented in an alternate sectionGoals may be documented in an alternate sectionGoals may be documented in an alternate sectionGoals may be documented in an alternate sectionGoals may be documented in an alternate sectionGoals may be documented in an alternate sectionGoals may be documented in an alternate sectionGoals may be documented in an alternate section Care Teams (unrecognized sec tion and content) Team Status: Active Member Role Status Dates Dr. Yandel Porter MD Family Provider Active Dr. Yandel Porter MD Primary Care Provider Active Team Status: Inactive Member Role Status Dates Dr. Yandel Porter MD Primary Care Provider, Attending Provider Active Team Status: Inactive Member Role Status Dates Dr. Yandel Porter MD Primary Care Provider Active Dr. Dmitry Meza MD Attending Provider, Referr ing Provider Active Team Status: Inactive Member Role Status Dates Dr. Yandel Porter MD Primary Care Provider Active Alethea Deluna Attending Provider, Referring Provide r Active Team Status: Active Member Role/Relationship Status Dates Dr. Yandel Porter MD Primary Care Provider Active Team Status: Active Member Role/Relationship Status Dates Dr. Yandel Porter MD Primary Care Provider Active Start: March 04, 2025 Dr. Yandel Porter MD Attending Provider Active Start: March 04, 2025 Dr. Yandel Porter MD Referring Provider Active Start: March 04, 2025 Team Status: Inactive Member Role/Relationship Status Dates Dr. Yandel Porter MD Primary Care Provider Active Start: March 09, 2025 End: March 09, 2025 Dr. Yandel Porter MD Attending Provider Active Start: March 09, 2025 End: March 09, 2025 Dr. Yandel Porter MD Referring Provider Active Start: March 09, 2025 End: March 09, 2025 Team Status: Inactive Member Role/Relationship Status Dates Dr. Yandel Porter MD Primary Care Provider Active Start: March 04, 2025 End: March 04, 2025 Dr. Yandel Porter MD Attending Provider Active Start: March 04, 2025 End: March 04, 2025 Dr. Yandel Porter MD Referring Provider Active Start: March 04, 2025 End: March 04, 2025 Team Status: Inactive Member Role/Relationship Status Dates Dr. Yandel Porter MD Primary Care Provider Active Start: March 31, 2025 End: March 31, 2025 Dr. Yandel Porter MD Attending Provider Active Start: March 31, 2025 End: March 31, 2025 FOR RECORDS PERTAINING TO PATIENTS WHO ARE [...] BE BASED ON THE PRIMARY CLINICAL RECORDS. [facility] [email or web address] provides no warranty or guarantee of the accuracy or completeness of information in this document.
== END | disposition home or self-care (01) ==
LOC: CVS 06:44
PROVIDERS: PCP Family Medicine Geriatric Medicine; Referring Provider Internal Medicine Cardiovascular Disease; Visit Provider Internal Medicine Cardiovascular Disease
DX: I10 Essential (primary) hypertension (principal); I48.91 Unspecified atrial fibrillation; E78.5 Hyperlipidemia, unspecified; R06.09 Other forms of dyspnea
CPT/HCPCS: 78452; 93017; 93306; A9500; A4216; J2785

== ENCOUNTER → 2025-07-18 | Outpatient (CLI) | payer MEDICARE, OTHER, SELFPAY ==
--- NOTE | 2025-07-18 09:45 | RAD_ITS ---
PROCEDURE: KNEE 4 OR MORE VIEWS 07/18/2025 REASON FOR EXAM: KNEE PAIN TECHNIQUE: Procedure Code: RADKN Modality: DX Procedure: KNEE 4 OR MORE VIEWS Right knee four views COMPARISON: June 15, 2021 FINDINGS: There is no acute fracture or dislocation identified. There is minimal spurring of the patellofemoral articulation. Heterotopic ossification is noted in the distal quadriceps and patellar tendon, similar to the prior. There is no significant effusion. Mineralization is normal. There is visible atherosclerosis. RAD/Knee 4 or More Views IMPRESSION: There is mild osteoarthritis with no fracture or dislocation identified. Reading Location: [facility]
--- NOTE | 2025-07-18 09:45 | RAD_ITS ---
PROCEDURE: HIP, UNI W/ PELVIS 2-3 VIEWS 07/18/2025 REASON FOR EXAM: PAIN IN HIP TECHNIQUE: Procedure Code: RADHP Modality: DX Procedure: HIP, UNI W/ PELVIS 2-3 VIEWS Pelvis with two views of the right hip COMPARISON: September 27, 2024 FINDINGS: Pelvic bones appear intact. There is mild osteoarthritis with spurring of the superolateral acetabular margin. There is no fracture or dislocation. Mineralization is normal. There is no visible atherosclerosis. RAD/HIP, UNI W/ Pelvis 2-3 Views IMPRESSION: No fracture or dislocation is identified. There is no significant interval ciera nge. Reading Location: [facility]
== END | disposition home or self-care (01) ==
LOC: RAD 09:44
PROVIDERS: PCP Family Medicine Geriatric Medicine; Referring Provider Anesthesiology; Visit Provider Anesthesiology
DX: M25.551 Pain in right hip (principal); M25.561 Pain in right knee
CPT/HCPCS: 73502; 73564